=== PATIENT | male | born 1960 | race Caucasian/White ===

== ENCOUNTER 2016-10-18 09:13 | Emergency (ER) | payer MEDICAID ==
[~2016-10-18] VITALS: Ht 182.9 cm; Wt 86.2 kg
[~2016-10-18 09:13] MED LIST: ACHD5005 PO; ALBU8.5H2 IH; ALBU8.5H2 INH; ALBU8.5H2 PO; AMIT25TA9 PO; AMOX-358 PO; AMOX500C2 PO; APIX2.5T PO; APIX5TAB2 PO; ASP325T PO; ASP325TEC PO; ASPI325T32 PO; ATOR80TA2 PO; ATOR80TA75 PO; BUTA1TAB46 PO; CARV12.53 PO; CARV3.122 PO; CARV3.12T PO; CEPH500C PO; CLAR-19 PO; CLOP75TA69 PO; CLPD75T PO; CPR500T PO; CYCL-97 PO; CYCL10TA9 PO; DCS100C PO; DIAZ10TA; DIAZ10TA3 PO; DIAZ5TAB3 PO; DICL75TA2 PO; DILT240C PO; DILT360C20 PO; DILT360C30; DILT360C30 PO; DIPH1TAB25 PO; DIPH1TAB45 PO; DOXA1TAB PO; DOXA1TAB2 PO; DOXA2TAB2 PO; DOXY100C2 PO; DXZS2T PO; Diazepam PO; ESZO3TAB3 PO; FENO135C PO; FURO80TA3 PO; GABA600T2 PO; Gabapentin PO; HYDR-1435 PO; HYDR-2858 PO; HYDR-2890 PO; HYDR-3720 PO; HYDR118S10 PO; HYDR1TAB PO; HYDR1TAB86 PO; HYOS0.1232; HYOS0.1234 PO; HYOS0.127 PO; HYOS0.127 SL; IBP600T1 PO; INSASP10V SC; INSU100I13 SQ; INSU100I14 SC; INSU100I14 SQ; INSU100I16 SQ; INSU100I17 SQ; INSU100I29 SC; INSU100I5 SC; INSU100V5 SQ; Insulin Human Lispro SC; KCL PO; LAMOTIL PO; LEVE1U SQ; LEVO500T2 PO; LISI20TA; LISI20TA PO; LOSA100T16 PO; LOSA100T28 PO; LOSA100T7 PO; METF500T; METF500T8; METO-351 PO; METO-451 PO; METO10TA3 PO; METO50TA7; METO50TA7 PO; METR500T17 PO; MORP15TA8 PO; MPR22TI TP; MTF500T; MTF500T PO; MTP50T PO; MUPI22OI2 TP; Metoprolol Tartrate PO; Morphine Sulfate PO; NAPR-243 PO; NICO1PAT TD; NITR0.3T6 SL; NITR0.4T PO; NITR0.4T SL; NTR.4SL SL; ONDA-42 SL; ONDA8TAB9 PO; ONDAN4ODT PO; OXYC-12 PO; OXYC-272 PO; OXYC10TA63 PO; OXYC1TAB17 PO; OXYC20TA4 PO; OXYCODONE 10MG PO; OXYCODONE HCL 10MG PO; PANT40SU; PANT40TA PO; PANT40TA3 PO; PNT40TEC PO; POTA10TA36 PO; POTA20TA15 PO; PRAV40TA PO; PRM25SURX PR; PRM25T PO; PRM50SU PR; PROP1TAB77; PROP1TAB77 PO; PRV20T PO; RIVA20TA2 PO; RT-ALBUINH IH; SULF-222 PO; SULF1TAB34 PO; SULF1TAB35 PO; SULF1TAB38 PO; SULF1TAB7 PO; TMZP15C PO; TORADOL; TORADOL 10 MG PO; TRAM-21 PO; TRAM50TA2 PO; TRM50T PO; TRZ100T; TRZ100T PO; VENL150C; VENL50TA; VENL75CA55 PO; VNL75CCR PO; VNL75T PO; WRF10T; WRF10T PO; WRF5T; [UNRECOGNIZED DRUG - CODE] PO; [UNRECOGNIZED DRUG - CODE] PO; [UNRECOGNIZED DRUG - CODE] TOP
--- OUTSIDE RECORDS SUMMARY | 2016-10-18 09:20 | XMS REPORT ---
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 Problem Diabetes mellitus without mention of complication, type II or unspecified type, not stated as uncontrolled 250.00 Active Problem Abdominal pain, unspecified site 789.00 Active Problem Abdominal pain, generalized 789.07 Active Problem Unspecified local infection of skin and subcutaneous tissue 686.9 Active Problem PVD (peripheral vascular disease) I73.9 Active Problem Diabetes with neurological manifestations, type II or unspecified type , uncontrolled 250.62 Active Problem Diarrhea 787.91 Active Problem Unspecified disorder of male genital organs 608.9 Active Problem Type 2 diabetes mellitus without complications E11.9 Active Problem Dysphagia, unspecified 787.20 Active Problem Abdominal pain, right lower quadrant 789.03 Active Problem Unspecified orchitis and epididymitis 604.90 Active Problem Urinary tract infection, site not specified 599.0 Active Problem Inguinal hernia without mention of obstruction or gangrene, unilateral or unspecified, (not specified as recurrent) 550.90 Active Problem Diverticulitis of colon (without mention of hemorrhage) 562.11 Active Problem Unspecified sleep apnea 780.57 Active Problem Contusion of hip 924.01 Active Problem Traumatic amputation of leg(s) (complete) (partial), unilateral, below knee, without mention of complication 897.0 Active Problem Personal history of noncompliance with medical treatment, presenting hazards to health V15.81 Active Problem Diabetes with other specified manifestations, type II or unspecified type, not stated as uncontrolled 250.80 Active Problem Dysuria 788.1 Active Problem Chronic kidney disease, unspecified 585.9 Active Medications Medication Code System Code Instructions Start Date End Date Status Dosage Nitrostat [facility] [id number] 0.4 MG TAKE 1 TABLET UNDER TONGUE NEEDED, MAY REPEAT EVERY 5 MINUTES - REPORT AFTER 3 Results No Known Results Summary Purpose eClinicalWorks Submission
[2016-10-18 09:30] VITALS: BP 159/112
--- NOTE | 2016-10-18 09:50 | Diagnostic Imaging Report ---
Portable upright radiograph of the chest. INDICATION: Chest pain. COMPARISON: 01/03/16. FINDINGS: The heart is enlarged with mild pulmonary vascular congestion. No overt edema or airspace consolidation. No effusion or pneumothorax. The mediastinum and keyanna appear unremarkable. There is an infusion port with tip at SVC level. Sternotomy wires are seen. IMPRESSION: Cardiomegaly with mild pulmonary vascular congestion. Dictated by: Dictated on workstation # [id number]
--- NOTE | 2016-10-18 10:11 | ED Chest Pain ---
General Chief Complaint: Chest Pain Stated Complaint: CHEST PAIN Nursing Triage Note: Pt to ED via [facility] c/o CP starting around 0600 this morning. Pt reports pain 10/10 at onset and states pain is now a 2/10. Pt received 324 mg ASA and #2 0.4mg SL nitro en route per EMS. Pt reports he has been having chest pain frequently for past 1.5 weeks and has been self treating with nitro. Pt reports he has been taking approx 4 nitro per day to help w/ chest pain. Pt reports he is now out of his home nitro. Nursing Sepsis Screen: No Definite Risk Source: patient, EMS, old records Exam Limitations: no limitations History of Present Illness Time seen by provider: 09:15 Initial Comments This 56-year-old gentleman with significant coronary artery disease presents with intermittent pain in the right lower chest near the sternum intermittently for 1-2 weeks. He can identify no exacerbating or alleviating factors. It is characterized as a squeezing pain. They reportedly improves after multiple doses of nitroglycerin but he has run out of his nitroglycerin. He denies any cough, shortness of air, or fever. He also complains of some epigastric pain that is chronic in nature and unchanged. Chest pain resolved by the time of my interview. Allergies and Home Medications Allergies Coded Allergies: codeine (Unverified Allergy, Severe, EDEMA, RESPIRATORY, 10/28/14) PATIENT TAKES HYDROCODONE AT HOME propoxyphene (Verified Allergy, Severe, THROAT SWELLED SHUT, 10/28/14) bee pollen (Unverified Allergy, Mild, 07/03/13) tramadol (Verified Allergy, Unknown, SEVERE MIGRAINE, 03/25/14) ibuprofen (Verified Adverse Reaction, Unknown, NAUSEA, 10/28/14) Home Medications Albuterol Sulfate 8.5 Gm Hfa.aer.ad 2 PUFF IH QID (Reported) Aspirin 325 Mg Tablet.dr 325 MG PO DAILY (Reported) Cephalexin 500 Mg Capsule #28 500 MG PO QID Prescribed by: MYRA RUBI on 07/16/16 1119 Clopidogrel Bisulfate 75 Mg Tablet #30 75 MG PO DAILY Prescribed by: BRITT BHATIA on 04/24/16 1701 Diphenoxylate HCl/Atropine 1 Each Tablet 1 TAB PO Q4H PRN PRN DIARRHEA (Reported ) Insulin Aspart 300 Units/3 Ml Solution SQ SLIDING/SCALE (Reported) Losartan Potassium 100 Mg Tablet 100 MG PO DAILY (Reported) Metoprolol Succinate 25 Mg Tab.er.24h #30 25 MG PO DAILY Prescribed by: BRITT HBATIA on 04/24/16 170 Mupirocin 22 Gm Oint...g. TP TID PRN PRN SKIN LESIONS (Reported) Nitroglycerin 0.4 Mg Tab.subl 0.4 MG PO UD PRN PRN CHEST PAIN (Reported) PLACE 1 TABLET UNDER TONGUE EVERY 5 MINUTES FOR 3 DOSES Pantoprazole Sodium 40 Mg Tablet.dr 40 MG PO DAILY (Reported) Pravastatin Sodium 40 Mg Tablet #30 40 MG PO DAILY Prescribed by: BRITT BHATIA on 04/24/16 170 Sulfamethoxazole/Trimethoprim 1 Each Tablet #20 1 EACH PO BID Prescribed by: MYRA RUBI on 07/16/16 1119 Review of Systems Constitutional: no symptoms reported EENTM: No Symptoms Reported Respiratory: No Symptoms Reported Cardiovascular: See HPI Gastrointestinal: See HPI Genitourinary: No Symptoms Reported Musculoskeletal: no symptoms reported Skin: no symptoms reported Psychiatric/Neurological: No Symptoms Reported Endocrine: No Symptoms Reported Past Okkeylr-Ythwxo-Qkfqbn Hx Patient Social History Alcohol Use: Past History Recreational Drug Use: Yes (MARIJUANA) Smoking Status: Current Everyday Smoker Recent Foreign Travel: No Contact w/Someone Who Travel: No Recent Infectious Disease Expo: No Recent Hopitalizations: Yes (Multiple, see Hx) Immunizations Up To Date Tetanus Booster (TDap): Less than 5yrs PED Vaccines UTD: No Date of Pneumonia Vaccine: Apr 24, 2013 Date of Influenza Vaccine: Jun 20, 2014 Seasonal Allergies Seasonal Allergies: No Surgeries HX Surgeries: Yes (HEMORRHOIDECTOMY, RT BKA, LT ABOVE KA, HERNIA REPX6) Surgeries: Abdominal, Cardiac, CABG, Gallbladder, Orthopedic Respiratory Hx Respiratory Disorders: Yes Respiratory Disorders: COPD Cardiovascular Hx Cardiac Disorders: Yes Cardiac Disorders: Coronary Artery Disease, Hypertension Neurological Hx Neurological Disorders: Yes Reproductive System Hx Reproductive Disorders: Yes (ED) Sexually Transmitted Disease: No Genitourinary Hx Genitourinary Disorders: Yes Genitourinary Disorders: Kidney Infection, Bladder Infection, Kidney Stones, Renal Failure Gastrointestinal Hx Gastrointestinal Disorders: Yes Gastrointestinal Disorders: Abdominal Hernia, Hemorrhoids Musculoskeletal Hx Musculoskeletal Disorders: Yes (GANGRENE) Musculoskeletal Disorders: Amputee, Chronic Back Pain Endocrine Hx Endocrine Disorders: Yes Endocrine Disorders: Diabetes, Insulin dep HEENT HX ENT Disorders: Yes (GLASSES FOR READING) Loss of Vision: Denies Hearing Impairment: Denies Cancer Hx Cancer: No Psychosocial Hx Psychiatric Problems: Yes Behavioral Health Disorders: Anxiety, Depression Integumentary HX Skin/Integumentary Disorder: Yes (diabetic ulcer) Skin/Integumentary Disorders: Recent Skin Changes Blood Transfusions Hx Blood Disorders: No Adverse Reaction to a Blood Tr: No (n/a) Family Medical History Significant Family History: Heart Disease Family Medial History: Patient reports no known family medical history. Physical Exam Vital Signs Vital Sign - Last 12Hours 10/18/16 09:30 Temp 97.8 Pulse 82 Resp 18 B/P 159/112 Capillary Refill : Less Than 3 Seconds General Appearance: No Apparent Distress WD/WN HEENT: PERRL/EOMI Normal ENT Inspection Neck: Normal Inspection Respiratory: Lungs Clear Normal Breath Sounds No Accessory Muscle Use No Respiratory Distress Cardiovascular: Regular Rate, Rhythm No Edema No Murmur Gastrointestinal: Normal Bowel Sounds Soft Tenderness (epigastrium) Extremity: Other (bilateral lower extremity amputations) Neurologic/Psychiatric: Alert Oriented x3 No Motor/Sensory Deficits Normal Mood/Affect can tester II-XII Norm as Tested Skin: Normal Color Warm/Dry Progress/Results/Core Measures Results/Orders Lab Results Laboratory Tests Test 10/18/16 10:05 Range/Units Activated Partial Thromboplast Time 22 L 24-35 SEC Alanine Aminotransferase (ALT/SGPT) 24 0-55 U/L Albumin 3.1 L 3.2-4.5 G/DL Alkaline Phosphatase 128 40-136 U/L Anion Gap 11 5-14 MMOL/L Aspartate Amino Transf (AST/SGOT) 28 5-34 U/L B-Type Natriuretic Peptide 795.5 H <100.0 PG/ML BUN/Creatinine Ratio 9 Basophils # (Auto) 0.1 0.0-0.1 10^3/uL Basophils (%) (Auto) 1 0-10 % Blood Urea Nitrogen 19 H 7-18 MG/DL Calcium Level 8.4 L 8.5-10.1 MG/DL Carbon Dioxide Level 21 21-32 MMOL/L Chloride Level 102 98-107 MMOL/L Creatinine 2.13 H 0.60-1.30 MG/DL Eosinophils # (Auto) 0.3 0.0-0.3 10^3/uL Eosinophils (%) (Auto) 4 0-10 % Estimat Glomerular Filtration Rate 32 Glucose Level 333 H 70-105 MG/DL Hematocrit 41 40-54 % Hemoglobin 14.7 13.3-17.7 G/DL INR Comment 1.0 0.8-1.4 Lipase 83 H 8-78 U/L Lymphocytes # (Auto) 1.7 1.0-4.0 X 10^3 Lymphocytes (%) (Auto) 21 12-44 % Magnesium Level 1.9 1.8-2.4 MG/DL Mean Corpuscular Hemoglobin 31 25-34 PG Mean Corpuscular Hemoglobin Concent 36 32-36 G/DL Mean Corpuscular Volume 86 80-99 FL Mean Platelet Volume 11.1 H 7.4-10.4 FL Monocytes # (Auto) 0.9 0.0-1.0 X 10^3 Monocytes (%) (Auto) 10 0-12 % Myoglobin 115.8 H 10.0-92.0 NG/ML Neutrophils # (Auto) 5.4 1.8-7.8 X 10^3 Neutrophils (%) (Auto) 64 42-75 % Platelet Count 245 130-400 10^3/uL Potassium Level 3.5 L 3.6-5.0 MMOL/L Prothrombin Time 13.1 12.2-14.7 SEC Red Blood Count 4.80 4.35-5.85 10^6/uL Red Cell Distribution Width 13.5 10.0-14.5 % Sodium Level 134 L 135-145 MMOL/L Total Bilirubin 0.8 0.1-1.0 MG/DL Total Protein 6.3 L 6.4-8.2 G/DL Troponin I < 0.30 <0.30 NG/ML White Blood Count 8.4 4.3-11.0 10^3/uL My Orders Orders-ADRIENNE PHIPPS MD Cbc With Automated Diff (10/18/16 09:15) Magnesium (10/18/16 09:15) Chest 1 View, Ap/Pa Only (10/18/16 09:15) Ekg Tracing (10/18/16 09:15) Cardiac Profile 1 (10/18/16 09:15) Comprehensive Metabolic Panel (10/18/16 09:15) Myoglobin Serum (10/18/16 09:15) Protime With Inr (10/18/16 09:15) Partial Thromboplastin Time (10/18/16 09:15) O2 (10/18/16 09:15) Monitor-Rhythm Ecg Trace Only (10/18/16 09:15) Saline Lock/Iv-Start (10/18/16 09:15) BNP (10/18/16 09:59) Lipase (10/18/16 10:06) Vital Signs/I&O Vital Sign - Last 12Hours 10/18/16 10/18/16 10/18/16 09:16 09:16 09:30 Temp 97.8 Pulse 82 Resp 18 B/P 159/112 Pulse Ox 95 95 O2 Delivery Nasal Cannula Nasal Cannula Nasal Cannula O2 Flow Rate 2 2 2 Blood Pressure Mean: 128 Progress Note : Progress Note Patient's pain resolved. He elected to sign AMA papers and leave without discussing lab results or plan. I did not have opportunity to visit with him again before departed AMA. ECG Initial ECG Impression Date: Oct 18, 2016 Initial ECG Impression Time: 09:19 Initial ECG Rate: 76 Initial ECG Rhythm: A Fib/Flutter Comment Rate controlled atrial fibrillation with no ST elevation or depression. Left axis deviation by automated read. No significant change from prior. Diagnostic Imaging Diagonstic Imaging: Xray Plain Films/CT/US/NM/MRI: chest Comments Chest x-ray viewed by me. Report reviewed. See report below: NAME: MICHAEL [facility] REC#: [id number] PT STATUS: REG ER : 1960 PHYSICIAN: ADRIENNE PHIPPS MD ADMIT DATE: 10/18/16/ER Draft Date of Exam:10/18/16 CHEST 1 VIEW, AP/PA ONLY Portable upright radiograph of the chest. INDICATION: Chest pain. COMPARISON: 01/03/16. FINDINGS: The heart is enlarged with mild pulmonary vascular congestion. No overt edema or airspace consolidation. No effusion or pneumothorax. The mediastinum and keyanna appear unremarkable. There is an infusion port with tip at SVC level. Sternotomy wires are seen. IMPRESSION: Cardiomegaly with mild pulmonary vascular congestion. Dictated on workstation # [id number] Dict: 10/18/16 0943 Trans: 10/18/16 0950 [id number] Interpreted by: HOLLIE PADILLA MD Electronically signed by: Departure Impression Impression: Primary Impression: Chest pain on exertion Additional Impressions: Coronary artery disease Qualified Code: I25.119 - Atherosclerotic heart disease of [place] coronary artery with unspecified angina pectoris Acute renal failure Qualified Code: N17.9 - Acute kidney failure, unspecified Epigastric pain Elevated lipase Disposition: AGAINST MEDICAL ADVICE Condition: Against Medical Advice Departure-Patient Inst. Referrals: [facility] (PCP/Family) Primary Care Physician ADRIENNE PHIPPS MD Oct 18, 2016 10:10
[2016-10-18 10:13] LABS: BASOPHILS # (AUTO) 0.1 10^3/uL (0.0-0.1); BASOPHILS % (AUTO) 1 % (0-10); EOSINOPHILS # (AUTO) 0.3 10^3/uL (0.0-0.3); EOSINOPHILS % (AUTO) 4 % (0-10); LYMPHOCYTES # (AUTO) 1.7 X 10^3 (1.0-4.0); LYMPHOCYTES % (AUTO) 21 % (12-44); MEAN CORPUSCULAR HEMOGLOBIN 31 PG (25-34); MEAN CORPUSCULAR HGB CONC 36 G/DL (32-36); MEAN CORPUSCULAR VOLUME 86 FL (80-99); MEAN PLATELET VOLUME 11.1 FL (7.4-10.4); MONOCYTES # (AUTO) 0.9 X 10^3 (0.0-1.0); MONOCYTES % (AUTO) 10 % (0-12); NEUTROPHILS # (AUTO) 5.4 X 10^3 (1.8-7.8); NEUTROPHILS % (AUTO) 64 % (42-75); PLATELET COUNT 245 10^3/uL (130-400); RED CELL DISTRIBUTION WIDTH 13.5 % (10.0-14.5); WHITE BLOOD COUNT 8.4 10^3/uL (4.3-11.0)
[2016-10-18 10:24] LABS: PROTHROMBIN TIME PATIENT 13.1 SEC (12.2-14.7)
[2016-10-18 10:36] LABS: ALANINE AMINOTRANSFERASE 24 U/L (0-55); ALBUMIN 3.1 G/DL (3.2-4.5); ANION GAP 11 MMOL/L (5-14); ASPARTATE AMINO TRANSFERASE 28 U/L (5-34); BILIRUBIN,TOTAL 0.8 MG/DL (0.1-1.0); BLOOD UREA NITROGEN 19 MG/DL (7-18); BUN/CREATININE RATIO 9; CALCIUM 8.4 MG/DL (8.5-10.1); CARBON DIOXIDE 21 MMOL/L (21-32); CHLORIDE 102 MMOL/L (98-107); CREATININE SERUM 2.13 MG/DL (0.60-1.30); GFR ESTIMATED 32; GLUCOSE 333 MG/DL (70-105); MAGNESIUM 1.9 MG/DL (1.8-2.4); POTASSIUM 3.5 MMOL/L (3.6-5.0); SODIUM 134 MMOL/L (135-145); TOTAL PROTEIN 6.3 G/DL (6.4-8.2)
[2016-10-18 10:43] LABS: MYOGLOBIN SERUM 115.8 NG/ML (10.0-92.0)
== END 2016-10-18 10:41 | disposition left against medical advice (07) ==
LOC: EDUNIT# 09:13 → ER 09:16
DX: I25.119 Atherosclerotic heart disease of native coronary artery with unspecified angina pectoris (principal); N17.9 Acute kidney failure, unspecified; I48.2 Chronic atrial fibrillation; I51.7 Cardiomegaly; R74.8 Abnormal levels of other serum enzymes; I10 Essential (primary) hypertension; E11.9 Type 2 diabetes mellitus without complications; F17.210 Nicotine dependence, cigarettes, uncomplicated; Z79.4 Long term (current) use of insulin; Z79.899 Other long term (current) drug therapy; Z79.82 Long term (current) use of aspirin
CPT/HCPCS: 36415; 71010; 80053; 83690; 83735; 83874; 83880; 84484; 85025; 85610; 85730; 93005; 93041

== ENCOUNTER 2017-07-16 08:52 | Observation (INO) | payer MEDICAID ==
[~2017-07-16] VITALS: Ht 152.4 cm; Wt 104.3 kg
[~2017-07-16 08:52] MED LIST changes: -NICO1PAT TD; +NICOTINE PATCH1 EAC3 TD
--- OUTSIDE RECORDS SUMMARY | 2017-07-16 09:07 | XMS REPORT ---
Author CHRISTINE Cordova [facility] eClinicalWorks Address Unknown Phone Unavailable Care Team Providers Care Mold Holder Name Role Phone CHRISTINE CHEUNG CP Unavailable [...] Start Date End Date Status Dosage Nitrostat [facility] [id number] 0.4 MG TAKE 1 TABLET UNDER TONGUE NEEDED, MAY REPEAT EVERY 5 MINUTES - REPORT AFTER 3 Results No Known Results Summary Purpose eClinicalWorks Submission
--- OUTSIDE RECORDS SUMMARY | 2017-07-16 09:08 | XMS REPORT ---
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 Z89.512 Active 357475044 Problem Type 2 diabetes mellitus without complications E11.9 Active 378652317 Problem PVD (peripheral vascular disease) I73.9 Active 797898817 ALLERGIES No Information SOCIAL HISTORY Never Assessed PLAN OF CARE VITAL SIGNS MEDICATIONS Medication Instructions Dosage Frequency Start Date End Date Duration Status [place] 5-325 MG Orally every 6 hrs 1 tablet as needed 6h Oct, 28 days Active RESULTS No Results PROCEDURES No Known procedures IMMUNIZATIONS No Known Immunizations MEDICAL (GENERAL) HISTORY Type Description Date Medical History Atrial fibrillation Medical History hypertension Medical History hernia, umbilical x5 Medical History hyperlipidemia Medical History type II diabetes Medical History Arthritis Medical History degenerative disease lumbosacral spine Medical History migraine headaches Medical History chronic pain Medical History depression Medical History anxiety Medical History mood disorder (anger) Medical History MRSA Surgical History right below the knee ampuation 01/09/2011 Surgical History bilat foot surgery for spurs Surgical History Left leg amputation above the knee 01/2015 Hospitalization History Hospitalizations for suregeries Hospitalization History Heart failure, Intractable N/V 10/04/15 Hospitalization History CHF 01/06/16 Hospitalization History [place]- testicular sweeling 05/2017
--- OUTSIDE RECORDS SUMMARY | 2017-07-16 09:08 | XMS REPORT ---
Author Author CHRISTINE CHEUNG 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 013462170 Problem Diabetes mellitus without mention of complication, type II or unspecified type, not stated as uncontrolled 250.00 Active 578527304 Problem Abdominal pain, unspecified site 789.00 Active 89096871 Problem Dysphagia, unspecified 787.20 Active 68784222 Problem Unspecified local infection of skin and subcutaneous tissue 686.9 Active 26102336 Problem Unspecified orchitis and epididymitis 604.90 Active 458983242 Problem Abdominal pain, generalized 789.07 Active 741968684 Problem Type 2 diabetes mellitus without complications E11.9 Active 670476982 Problem PVD (peripheral vascular disease) I73.9 Active 550291030 Problem Contusion of hip 924.01 Active 82579943 Problem Diarrhea 787.91 Active 56213008 Problem Unspecified disorder of male genital organs 608.9 Active 78651420 Problem Inguinal hernia without mention of obstruction or gangrene, unilateral or unspecified, (not specified as recurrent) 550.90 Active 83634202 Problem Abdominal pain, right lower quadrant 789.03 Active 900082554 Problem Diabetes with neurological manifestations, type II or unspecified type , uncontrolled 250.62 Active 635764150 Problem Urinary tract infection, site not specified 599.0 Active 56347501 Problem Unspecified sleep apnea 780.57 Active 88842859 Problem Dysuria 788.1 Active 92392439 Problem Traumatic amputation of leg(s) (complete) (partial), unilateral, below knee, without mention of complication 897.0 Active 59048584 Problem Diverticulitis of colon (without mention of hemorrhage) 562.11 Active 824461283 Problem Diabetes with other specified manifestations, type II or unspecified type, not stated as uncontrolled 250.80 Active 867199673 Problem Pediculus capitis (head louse) 132.0 Active 44758308 Problem Chronic kidney disease, unspecified 585.9 Active 386703247 Problem Personal history of noncompliance with medical treatment, presenting hazards to health V15.81 Active 059622906 ALLERGIES Unknown Allergies SOCIAL HISTORY No smoking Hx information available PLAN OF CARE VITAL SIGNS MEDICATIONS Unknown Medications RESULTS No Results PROCEDURES No Known procedures IMMUNIZATIONS No Known Immunizations
--- OUTSIDE RECORDS SUMMARY | 2017-07-16 09:10 | XMS REPORT ---
Author CHRISTINE Cordova [facility] eClinicalWorks Address Unknown Phone Unavailable Care Team Providers Care Innersole Maker Name Role Phone CHRISTINE CHEUNG CP Unavailable Allergies No Known Allergies Problems Problem Type Condition Code Onset Dates Condition Status Problem Personal history of noncompliance with medical treatment, presenting hazards to health V15.81 Active Problem Cellulitis and abscess of unspecified site 682.9 Active Problem Diabetes with other specified manifestations, type II or unspecified type, not stated as uncontrolled 250.80 Active Problem Rash and other nonspecific skin eruption 782.1 Active Problem Pediculus capitis (head louse) 132.0 Active Problem Abdominal pain, unspecified site 789.00 Active Problem 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 Problem Urinary tract infection, site not specified 599.0 Active Problem Inguinal hernia without mention of obstruction or gangrene, unilateral or unspecified, (not specified as recurrent) 550.90 Active Problem Dysphagia, unspecified 787.20 Active Problem Diabetes mellitus without mention of complication, type II or unspecified type, not stated as uncontrolled 250.00 Active Problem Diabetes with neurological manifestations, type II or unspecified type , uncontrolled 250.62 Active Problem Other specified disorders of liver 573.8 Active Problem Abdominal pain, generalized 789.07 Active Problem Unspecified local infection of skin and subcutaneous tissue 686.9 Active Problem Abdominal pain, right lower quadrant 789.03 Active Problem Unspecified orchitis and epididymitis 604.90 Active Problem Contusion of hip 924.01 Active Problem Traumatic amputation of leg(s) (complete) (partial), unilateral, below knee, without mention of complication 897.0 Active Problem Unspecified disorder of male genital organs 608.9 Active Problem Diarrhea 787.91 Active Problem Dysuria 788.1 Active Problem Chronic kidney disease, unspecified 585.9 Active Problem Diverticulitis of colon (without mention of hemorrhage) 562.11 Active Problem Unspecified sleep apnea 780.57 Active Medications Medication Code System Code Instructions Start Date End Date Status Dosage NovoLog Flexpen [facility] [address]-63 100 UNIT/ML inject 12 units subcutaneously three times daily before meals Results No Known Results Summary Purpose eClinicalWorks Submission
--- NOTE | 2017-07-16 09:13 | ED Chest Pain ---
General Chief Complaint: Chest Pain Stated Complaint: CP Source: patient Exam Limitations: no limitations History of Present Illness Time seen by provider: 08:56 Initial Comments Here by EMS with report of right-sided chest pain that radiates to his right neck. Associated with nausea and vomiting times one. Pain 9 out of 10 earlier. Onset at 4 a.m. and has persisted since. He did take 2 nitroglycerin at home earlier today which did not help. EMS did give aspirin 324 mg by mouth as well as nitroglycerin sublingual 2 for persistent pain. Blood pressure remains stable and pain decreased to 2 out of 10. Also complaining of right kidney pain as well as left upper abdominal pain. Nausea improved after Zofran given by EMS. 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: Yes NTG SL BLENDER CONVEYOR OPERATOR: Yes Associated Symptoms: abdominal pain, No back pain, No fever/chills, nausea/ vomiting, shortness of breath, No weakness Allergies and Home Medications Allergies Coded Allergies: codeine (Unverified Allergy, Severe, EDEMA, RESPIRATORY, 10/28/14) PATIENT TAKES HYDROCODONE AT HOME propoxyphene (Verified Allergy, Severe, THROAT SWELLED SHUT, 10/28/14) bee pollen (Unverified Allergy, Mild, 07/03/13) tramadol (Verified Allergy, Unknown, SEVERE MIGRAINE, 03/25/14) ibuprofen (Verified Adverse Reaction, Unknown, NAUSEA, 10/28/14) Home Medications Albuterol Sulfate 8.5 Gm Hfa.aer.ad, 2 PUFF IH QID, (Reported) Aspirin 325 Mg Tablet.dr, 325 MG PO DAILY, (Reported) Clopidogrel Bisulfate 75 Mg Tablet, 75 MG PO DAILY, #30 Ref 5 Prescribed by: BRITT MCDANIELS on 04/24/161700 Diphenoxylate HCl/Atropine 1 Each Tablet, 1 TAB PO Q4H PRN for DIARRHEA, ( Reported) Insulin Aspart 300 Units/3 Ml Solution, SQ SLIDING/SCALE, (Reported) Losartan Potassium 100 Mg Tablet, 100 MG PO DAILY, (Reported) Metoprolol Succinate 25 Mg Tab.er.24h, 25 MG PO DAILY, #30 Ref 5 Prescribed by: BIRTT MCDANIELS on 04/24/16 Mupirocin 22 Gm Oint...g., TP TID PRN for SKIN LESIONS, (Reported) Nitroglycerin 0.4 Mg Tab.subl, 0.4 MG PO UD PRN for CHEST PAIN, (Reported) PLACE 1 TABLET UNDER TONGUE EVERY 5 MINUTES FOR 3 DOSES Pantoprazole Sodium 40 Mg Tablet.dr, 40 MG PO DAILY, (Reported) Pravastatin Sodium 40 Mg Tablet, 40 MG PO DAILY, #30 Ref 5 Prescribed by: BRITT MCDANIELS on 04/24/161700 Review of Systems Constitutional: see HPI, No chills, No fever EENTM: No Symptoms Reported Respiratory: No Symptoms Reported, Denies SOA at Rest, Denies Wheezing Cardiovascular: Chest Pain, Edema Gastrointestinal: See HPI, Abdominal Pain, Nausea, Vomiting Genitourinary: See HPI, Pain Musculoskeletal: no symptoms reported Skin: no symptoms reported Psychiatric/Neurological: No Symptoms Reported All Other Systems Reviewed Negative Unless Noted: Yes Past Zyfkzsm-Kzfjoa-Burvgi Hx Patient Social History Alcohol Use: Past History Recreational Drug Use: Yes Smoking Status: Current Everyday Smoker Recent Hopitalizations: Yes (Multiple, see Hx) Immunizations Up To Date Tetanus Booster (TDap): Less than 5yrs PED Vaccines UTD: No Date of Pneumonia Vaccine: Apr 24, 2013 Date of Influenza Vaccine: Jun 20, 2014 Seasonal Allergies Seasonal Allergies: No Surgeries History of Surgeries: Yes Surgeries: Abdominal, Cardiac, CABG, Gallbladder, Orthopedic Respiratory History of Respiratory Disorde: Yes Respiratory Disorders: COPD Cardiovascular History of Cardiac Disorders: Yes Cardiac Disorders: Coronary Artery Disease, Hypertension Reproductive System Hx Reproductive Disorders: Yes (ED) Sexually Transmitted Disease: No Genitourinary History of Genitourinary Disor: Yes Genitourinary Disorders: Kidney Infection, Bladder Infection, Kidney Stones, Renal Failure Gastrointestinal History of Gastrointestinal Di: Yes Gastrointestinal Disorders: Abdominal Hernia, Hemorrhoids Musculoskeletal History of Musculoskeletal Dis: Yes Musculoskeletal Disorders: Amputee, Chronic Back Pain Endocrine History of Endocrine Disorders: Yes Endocrine Disorders: Diabetes, Insulin dep HEENT History of HEENT Disorders: Yes Loss of Vision: Denies Hearing Impairment: Denies Psychosocial Behavioral Health Disorders: Anxiety, Depression Integumentary Skin/Integumentary Disorders: Recent Skin Changes Blood Transfusions Adverse Reaction to a Blood Tr: No (n/a) Reviewed Nursing Assessment Reviewed/Agree w Nursing PMH: Yes Family Medical History Significant Family History: Heart Disease Family Medial History: Patient reports no known family medical history. Physical Exam Vital Signs Vital Sign - Last 12Hours Capillary Refill : General Appearance: No Apparent Distress, WD/WN HEENT: PERRL/EOMI, Pharynx Normal Neck: Non Tender, Supple Respiratory: Lungs Clear, Normal Breath Sounds Cardiovascular: Regular Rate, Rhythm, No Murmur Gastrointestinal: Non Tender, Soft Extremity: Normal Range of Motion, Non Tender Neurologic/Psychiatric: Alert, Oriented x3 Skin: Normal Color, Warm/Dry Progress/Results/Core Measures Results/Orders Lab Results Laboratory Tests Test 07/16/17 09:00 07/16/17 09:05 Range/Units White Blood Count 8.2 4.3-11.0 10^3/uL Red Blood Count 4.24 L 4.35-5.85 10^6/uL Hemoglobin 13.0 L 13.3-17.7 G/DL Hematocrit 38 L 40-54 % Mean Corpuscular Volume 89 80-99 FL Mean Corpuscular Hemoglobin 31 25-34 PG Mean Corpuscular Hemoglobin Concent 35 32-36 G/DL Red Cell Distribution Width 14.5 10.0-14.5 % Platelet Count 191 130-400 10^3/uL Mean Platelet Volume 11.1 H 7.4-10.4 FL Neutrophils (%) (Auto) 72 42-75 % Lymphocytes (%) (Auto) 15 12-44 % Monocytes (%) (Auto) 8 0-12 % Eosinophils (%) (Auto) 5 0-10 % Basophils (%) (Auto) 1 0-10 % Neutrophils # (Auto) 5.9 1.8-7.8 X 10^3 Lymphocytes # (Auto) 1.2 1.0-4.0 X 10^3 Monocytes # (Auto) 0.7 0.0-1.0 X 10^3 Eosinophils # (Auto) 0.4 H 0.0-0.3 10^3/uL Basophils # (Auto) 0.0 0.0-0.1 10^3/uL Prothrombin Time 14.2 12.2-14.7 SEC INR Comment 1.1 0.8-1.4 Activated Partial Thromboplast Time 28 24-35 SEC Sodium Level 136 135-145 MMOL/L Potassium Level 4.2 3.6-5.0 MMOL/L Chloride Level 106 98-107 MMOL/L Carbon Dioxide Level 22 21-32 MMOL/L Anion Gap 8 5-14 MMOL/L Blood Urea Nitrogen 30 H 7-18 MG/DL Creatinine 3.04 H 0.60-1.30 MG/DL Estimat Glomerular Filtration Rate 21 BUN/Creatinine Ratio 10 Glucose Level 243 H 70-105 MG/DL Calcium Level 8.5 8.5-10.1 MG/DL Magnesium Level 1.9 1.8-2.4 MG/DL Total Bilirubin 0.7 0.1-1.0 MG/DL Aspartate Amino Transf (AST/SGOT) 15 5-34 U/L Alanine Aminotransferase (ALT/SGPT) 13 0-55 U/L Alkaline Phosphatase 114 40-136 U/L Myoglobin 145.6 H 10.0-92.0 NG/ML Troponin I < 0.30 <0.30 NG/ML Total Protein 6.4 6.4-8.2 GM/DL Albumin 3.0 L 3.2-4.5 GM/DL Amylase Level 51 25-125 U/L Lipase 37 8-78 U/L Urine Color YELLOW Urine Clarity CLEAR Urine pH 7 5-9 Urine Specific [place] 1.010 L 1.016-1.022 Urine Protein 3+ H NEGATIVE Urine Glucose (UA) 1+ H NEGATIVE Urine Ketones NEGATIVE NEGATIVE Urine Nitrite NEGATIVE NEGATIVE Urine Bilirubin NEGATIVE NEGATIVE Urine Urobilinogen NORMAL NORMAL MG/DL Urine Leukocyte Esterase NEGATIVE NEGATIVE Urine RBC (Auto) 2+ H NEGATIVE Urine RBC 2-5 H /HPF Urine WBC NONE /HPF Urine Crystals NONE /LPF Urine Bacteria NEGATIVE /HPF Urine Casts NONE /LPF Urine Mucus NEGATIVE /LPF Urine Culture Indicated NO My Orders Orders - ANANDA GONCALVES MD Ekg Tracing (07/16/17 08:53) Cbc With Automated Diff (07/16/17 09:01) Magnesium (07/16/17 09:01) Chest 1 View, Ap/Pa Only (07/16/17 09:01) Cardiac Profile 1 (07/16/17 09:01) Comprehensive Metabolic Panel (07/16/17 09:01) Myoglobin Serum (07/16/17 09:01) Protime With Inr (07/16/17 09:01) Partial Thromboplastin Time (07/16/17 09:01) O2 (07/16/17 09:01) Monitor-Rhythm Ecg Trace Only (07/16/17 09:01) Lipid Panel (07/17/17 06:00) Lipase (07/16/17 09:01) Amylase (07/16/17 09:01) Ua Culture If Indicated (07/16/17 09:02) Morphine Injection (Morphine Injection (07/16/17 10:46) Morphine Injection (Morphine Injection (07/16/17 10:41) Apixaban Tablet (Eliquis Tablet) (07/16/17 11:15) Vital Signs/I&O Vital Sign - Last 12Hours 07/16/17 07/16/17 07/16/17 08:54 08:54 08:54 Temp 97.9 Pulse 65 Resp 18 B/P (MAP) 163/101 Pulse Ox 96 98 O2 Delivery Nasal Cannula Nasal Cannula Nasal Cannula O2 Flow Rate 2.00 2.0 Progress Note : Progress Note Seen and evaluated. IV by EMS. Labs, EKG and chest x-ray ordered. UA ordered. Monitor patient. Findings as noted above. Patient has improved pain but still a little bit. Morphine 4 mg IV. 1153: I did discuss the case with Dr. Turner. She accepts patient for admission, observation status. Consult Dr. Mcdaniels. This was done at 1100. He accepts patient in consult. Eliquis 2.5 mg by mouth ordered per his recommendation. Discussed with patient and family who agree and are appreciative. Old records will be ordered from [facility] visit 2 weeks ago. Admit observation status. ECG Initial ECG Impression Date: Jul 16, 2017 Initial ECG Impression Time: 08:53 Initial ECG Rate: 71 Initial ECG Rhythm: A Fib/Flutter Comment Atrial fibrillation with leftward axis. No evidence of ST elevation [place]. Unchanged from previous of 18 October 2016. Interpreted by me. Diagnostic Imaging Diagonstic Imaging: Xray Plain Films/CT/US/NM/MRI: chest Comments VIA [facility] [place], [place] NAME: MICHAEL TO [facility] REC#: [id number] PT STATUS: REG ER : 1960 PHYSICIAN: ANANDA GONCALVES MD ADMIT DATE: 07/16/17/ER Draft Date of Exam:07/16/17 CHEST 1 VIEW, AP/PA ONLY EXAMINATION: Portable upright radiograph of the chest. INDICATION: Chest pain. FINDINGS: The lungs demonstrate interstitial thickening suggestive of vascular congestion with medial right basilar infiltrates or atelectasis. There is suggestion of small effusions. No pneumothorax. The mediastinum and keyanna appear unremarkable. Sternotomy wires are seen. There is a left subclavian Jzpj-[id number]-mngbsken with the tip at the SVC level. IMPRESSION: Cardiomegaly with mild vascular congestion. Mild right basilar infiltrates or atelectasis. Dictated on workstation # [id number] Dict: 07/16/17 09 Trans: 07/16/17 0925 [facility] [phone] Interpreted by: HOLLIE PADILLA MD Electronically signed by: Departure Communication (Admissions) Time/Spoke to Admitting Phy: 10:53 Impression Impression: Primary Impression: Chest pain Qualified Codes: R07.9 - Chest pain, unspecified Additional Impression: Chronic kidney disease Qualified Codes: N18.9 - Chronic kidney disease, unspecified Disposition: Condition: Stable Admissions Decision to Admit Reason: Admit from ER (General) Decision to Admit/Date: Jul 16, 2017 Time/Decision to Admit Time: 10:53 Departure-Patient Inst. Referrals: [facility] (PCP/Family) Primary Care Physician ANANDA GONCALVES MD Jul 16, 2017 09:13
[2017-07-16 09:14] LABS: BILIRUBIN,URINE NEGATIVE (NEGATIVE); KETONES,URINE NEGATIVE (NEGATIVE); LEUKOCYTE ESTERASE ,URINE NEGATIVE (NEGATIVE); NITRITE,URINE NEGATIVE (NEGATIVE); PH,URINE 7 (5-9); PROTEIN,URINE 3+ (NEGATIVE); UROBILINOGEN,URINE NORMAL (NORMAL)
[2017-07-16 09:14] LABS: BASOPHILS % (AUTO) 1 % (0-10); EOSINOPHILS # (AUTO) 0.4 10^3/uL (0.0-0.3); EOSINOPHILS % (AUTO) 5 % (0-10); LYMPHOCYTES # (AUTO) 1.2 X 10^3 (1.0-4.0); LYMPHOCYTES % (AUTO) 15 % (12-44); MEAN CORPUSCULAR HEMOGLOBIN 31 PG (25-34); MEAN CORPUSCULAR HGB CONC 35 G/DL (32-36); MEAN CORPUSCULAR VOLUME 89 FL (80-99); MEAN PLATELET VOLUME 11.1 FL (7.4-10.4); MONOCYTES # (AUTO) 0.7 X 10^3 (0.0-1.0); MONOCYTES % (AUTO) 8 % (0-12); NEUTROPHILS # (AUTO) 5.9 X 10^3 (1.8-7.8); NEUTROPHILS % (AUTO) 72 % (42-75); PLATELET COUNT 191 10^3/uL (130-400); RED BLOOD COUNT 4.24 10^6/uL (4.35-5.85); RED CELL DISTRIBUTION WIDTH 14.5 % (10.0-14.5); WHITE BLOOD COUNT 8.2 10^3/uL (4.3-11.0)
--- OUTSIDE RECORDS SUMMARY | 2017-07-16 09:14 | XMS REPORT ---
Author CHRISTINE Cordova Organization [employer] Address Unknown Phone Unavailable Care Team Providers Care Cherry Cutter Name Role Phone CHRISTINE CHEUNG CP Unavailable [...] Problem Unspecified sleep apnea 780.57 Active Medications No Known Medications Results No Known Results Summary Purpose [employer]Clinical[employer] Submission
--- OUTSIDE RECORDS SUMMARY | 2017-07-16 09:17 | XMS REPORT ---
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
--- OUTSIDE RECORDS SUMMARY | 2017-07-16 09:18 | XMS REPORT ---
Author CHRISTINE Cordova [facility] [employer] Address Unknown Phone Unavailable Care Team Providers Care Continuous Improvement Engineer Name Role Phone CHRISTINE CHEUNG CP Unavailable [...] Start Date End Date Status Dosage Nitrostat [facility] [id number] 0.4 MG TAKE 1 TABLET UNDER TONGUE NEEDED, MAY REPEAT EVERY 5 MINUTES - REPORT AFTER 3 Mupirocin [facility] [id number] 2 % APPLY TO AFFECTED AREA THREE TIMES DAILY Results No Known Results Summary Purpose [employer]Works Submission
--- OUTSIDE RECORDS SUMMARY | 2017-07-16 09:18 | XMS REPORT ---
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 241320583 Problem Diabetes mellitus without mention of complication, type II or unspecified type, not stated as uncontrolled 250.00 Active 225048977 Problem Abdominal pain, unspecified site 789.00 Active 68165905 Problem Dysphagia, unspecified 787.20 Active 38793185 Problem Unspecified local infection of skin and subcutaneous tissue 686.9 Active 52146529 Problem Unspecified orchitis and epididymitis 604.90 Active 618828586 Problem Abdominal pain, generalized 789.07 Active 065713810 Problem Type 2 diabetes mellitus without complications E11.9 Active 402477955 Problem PVD (peripheral vascular disease) I73.9 Active 264720065 Problem Contusion of hip 924.01 Active 66202639 Problem Diarrhea 787.91 Active 23685558 Problem Unspecified disorder of male genital organs 608.9 Active 24542042 Problem Inguinal hernia without mention of obstruction or gangrene, unilateral or unspecified, (not specified as recurrent) 550.90 Active 93438136 Problem Abdominal pain, right lower quadrant 789.03 Active 637547841 Problem Diabetes with neurological manifestations, type II or unspecified type , uncontrolled 250.62 Active 868783238 Problem Urinary tract infection, site not specified 599.0 Active 19173971 Problem Unspecified sleep apnea 780.57 Active 26559669 Problem Dysuria 788.1 Active 51163068 Problem Traumatic amputation of leg(s) (complete) (partial), unilateral, below knee, without mention of complication 897.0 Active 30635978 Problem Diverticulitis of colon (without mention of hemorrhage) 562.11 Active 371103125 Problem Diabetes with other specified manifestations, type II or unspecified type, not stated as uncontrolled 250.80 Active 894556993 Problem Pediculus capitis (head louse) 132.0 Active 88848268 Problem Chronic kidney disease, unspecified 585.9 Active 341628761 Problem Personal history of noncompliance with medical treatment, presenting hazards to health V15.81 Active 029215368 ALLERGIES Unknown Allergies SOCIAL HISTORY No smoking Hx information available PLAN OF CARE VITAL SIGNS MEDICATIONS Medication Instructions Dosage Frequency Start Date End Date Duration Status Lomotil 2.5-0.025 MG Orally Four times a day 1 tablet NEEDED 6h Jul, Active RESULTS No Results PROCEDURES No Known procedures IMMUNIZATIONS No Known Immunizations
--- OUTSIDE RECORDS SUMMARY | 2017-07-16 09:20 | XMS REPORT ---
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 Z89.512 Active 686348295 Problem Type 2 diabetes mellitus without complications E11.9 Active 525865085 Problem PVD (peripheral vascular disease) I73.9 Active 808135293 ALLERGIES Substance Reaction Event Type Date Status Tramadol HCl nausea Drug Allergy December, Active Ibuprofen nausea Drug Allergy December, Active Darvocet-n 100 Unknown Drug Allergy December, Active Codeine Sulfate anaphylaxis Drug Allergy December, Active Morphine stomach upset Drug Allergy December, Active SOCIAL HISTORY Never Assessed PLAN OF CARE VITAL SIGNS Height 77 in 2017-01-18 Temperature 98.0 degrees Fahrenheit 2017-01-18 Heart Rate 70 bpm 2017-01-18 Respiratory Rate 20 2017-01-18 Blood pressure systolic 148 mmHg 2017-01-18 Blood pressure diastolic 98 mmHg 2017-01-18 MEDICATIONS Medication Instructions Dosage Frequency Start Date End Date Duration Status Wheelchair 1 as directed May, Active Losartan Potassium 100 MG TAKE ONE TABLET BY MOUTH DAILY 30 Active True Metrix Blood Glucose Test - as directed Mar, Active True Metrix Meter w/Device as directed Mar, Active Nitrostat 0.4 MG TAKE 1 TABLET UNDER TONGUE NEEDED, MAY REPEAT EVERY 5 MINUTES - REPORT AFTER 3 Active Furosemide 80 MG Orally Once a day 1 tablet 24h Active NovoLog Flexpen 100 UNIT/ML INJECT 12 UNITS SUBCUTANEOUSLY THREE TIMES DAILY BEFORE MEALS 31 Active Bactrim DS 800-160 MG Orally Twice a day 1 tablet 12h December,December 10 day(s) Active Diphenoxylate-Atropine 2.5-0.025 MG Orally Four times a day TAKE 1 TABLET BY MOUTH NEEDED FOR FOUR TIMES DAILY 6h 8 Active ProAir HFA 108 (90 Base) MCG/ACT INHALE 2 PUFFS FOUR TIMES DAILY (NEED TO MAKE APPOINTMENT ) 25 Active Hyoscyamine Sulfate 0.125 MG TAKE 1 TABLET BY MOUTH BEFORE MEALS EVERY FOUR HOURS NEEDED 5 Active UltiCare Short Pen [place] 31G X 8 MM USE DIRECTED WITH INSULIN THREE TIMES DAILY 30 Active Pantoprazole Sodium 40 mg Orally Once a day 1 tablet 24h 30 days Active Doxazosin Mesylate 1 MG Orally Once a day 1 tablet 24h Active Peyton 5-325 MG Orally every 6 hrs 1 tablet as needed 6h December, Jan, 28 days Active Sklice 0.5 % Externally rinse well. apply to dry hair let set 10 minutes Sep, 30 days Active Advocate Insulin Pen [place] 31G X 8 MM as directed 8h Dec, Active Bactroban 2 % Externally Three times a day 1 application to affected area 8h Sep, Active Lomotil 2.5-0.025 MG Orally Four times a day 1 tablet NEEDED 6h Jul, Active Aspirin 325 MG Orally Once a day 1 tablet 24h Active Crutches-Aluminum - as directed December, 30 days Active RESULTS No Results PROCEDURES Procedure Date Ordered Result Body Site TORADOL (IM) 60 MG/2ML (UP TO 15 MG) January 18, 2017 THER/PROPH/DIAG INJ, SC/IM January 18, 2017 IMMUNIZATIONS Vaccine Route Administration Date Status TORADOL (IM) 60 MG/2ML (UP TO 15 MG) IM Intramuscular January 18, 2017 Administered MEDICAL (GENERAL) HISTORY Type Description Date Medical [...]
--- OUTSIDE RECORDS SUMMARY | 2017-07-16 09:20 | XMS REPORT ---
Author Author CHRISTINE CHEUNG Organization 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
--- OUTSIDE RECORDS SUMMARY | 2017-07-16 09:20 | XMS REPORT ---
Author Author DEJAN CASTELLANO Organization [employer] Address Unknown Phone Unavailable Care Team Providers Care Wire Web Worker Name Role Phone DEJAN CASTELLANO CP Unavailable Allergies No Known Allergies Problems [...]
[2017-07-16 09:23] LABS: INR 1.1 (0.8-1.4); PROTHROMBIN TIME PATIENT 14.2 SEC (12.2-14.7)
--- NOTE | 2017-07-16 09:25 | Diagnostic Imaging Report ---
EXAMINATION: Portable upright radiograph of the chest. INDICATION: Chest pain. FINDINGS: The lungs demonstrate interstitial thickening suggestive of vascular congestion with medial right basilar infiltrates or atelectasis. There is suggestion of small effusions. No pneumothorax. The mediastinum and keyanna appear unremarkable. Sternotomy wires are seen. There is a left subclavian Siqg-N-zezynote with the tip at the SVC level. IMPRESSION: Cardiomegaly with mild vascular congestion. Mild right basilar infiltrates or atelectasis. Dictated by: Dictated on workstation # [id number]
--- OUTSIDE RECORDS SUMMARY | 2017-07-16 09:28 | XMS REPORT ---
Author CHRISTINE Cordova [facility] [employer] Address Unknown Phone Unavailable Care Team Providers Care Edging Machine Catcher Name Role Phone CHRISTINE CHEUNG CP Unavailable Allergies No Known Allergies Problems Problem Type Condition ICD-9 Code Onset Dates Condition Status Assessment Traumatic amputation of leg(s) (complete) (partial), unilateral, [...] Instructions Start Date End Date Status Dosage Tramadol HCl NDC [address]-38 50 MG Orally every 6 hrs PRN. MUST LAST 30 DAYS March 14, 2015 1 tablet as needed oxycodone NDC 0 10 mg November 15, 2014 take 1 tablet by Oral route every 6 hours PRN Results No Known Results Summary Purpose [employer]ClinicalWorks Submission
--- OUTSIDE RECORDS SUMMARY | 2017-07-16 09:28 | XMS REPORT ---
Author CHRISTINE Cordova [facility] e[employer] Address Unknown Phone Unavailable Care Team Providers Care Morning Show Host Name Role Phone CHRISTINE CHEUNG CP Unavailable [...] Instructions Start Date End Date Status Dosage Scooter NDC 0 1 DX: bilateral amputee March 21, 2016 as directed Results No Known Results Summary Purpose eClinicalWorks Submission
--- OUTSIDE RECORDS SUMMARY | 2017-07-16 09:30 | XMS REPORT ---
Author CHRISTINE Cordova Organization [employer] Address Unknown Phone Unavailable Care Team Providers Care Facility Worker Name Role Phone CHRISTINE CHEUNG CP Unavailable [...]
--- OUTSIDE RECORDS SUMMARY | 2017-07-16 09:30 | XMS REPORT ---
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 apply to dry hair let set 10 minutes Sep, 30 days Active RESULTS No Results PROCEDURES No Known procedures IMMUNIZATIONS No Known Immunizations
--- OUTSIDE RECORDS SUMMARY | 2017-07-16 09:31 | XMS REPORT ---
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 V49.76 Active 791369671 Problem Type 2 diabetes mellitus without complications E11.9 Active 162974581 Problem PVD (peripheral vascular disease) I73.9 Active 280877172 ALLERGIES Substance Reaction Event Type Date Status Tramadol HCl nausea Drug Allergy Oct, Active Ibuprofen nausea Drug Allergy Oct, Active Darvocet-n 100 Unknown Drug Allergy Oct, Active Codeine Sulfate anaphylaxis Drug Allergy Oct, Active Morphine stomach upset Drug Allergy Oct, Active SOCIAL HISTORY Never Assessed PLAN OF CARE VITAL SIGNS Height 77 in 2016-11-16 Weight 212 lbs 2016-11-16 Temperature 98.2 degrees Fahrenheit 2016-11-16 Heart Rate 84 bpm 2016-11-16 Respiratory Rate 22 2016-11-16 BMI 25.14 kg/m2 2016-11-16 Blood pressure systolic 138 mmHg 2016-11-16 Blood pressure diastolic 82 mmHg 2016-11-16 MEDICATIONS Medication Instructions Dosage Frequency Start Date End Date Duration Status Furosemide 80 MG Orally Once a day 1 tablet 24h Active Wheelchair 1 as directed May, Active ProAir HFA 108 (90 Base) MCG/ACT INHALE 2 PUFFS FOUR TIMES DAILY (NEED TO MAKE APPT) 25 Active Advocate Insulin Pen [place] 31G X 8 MM as directed 8h Dec, Active Nitrostat 0.4 MG TAKE 1 TABLET UNDER TONGUE NEEDED, MAY REPEAT EVERY 5 MINUTES - REPORT AFTER 3 Active Pantoprazole Sodium 40 MG Orally Once a day 1 tablet 24h Active Nitroglycerin 0.4 MG TAKE 1 TABLET UNDER TONGUE NEEDED, MAY REPEAT EVERY 5 MINUTES FOR 3 DOSES - REPORT TO DR/ER AFTER 3 DOSES 31 Active Lomotil 2.5-0.025 MG Orally Four times a day 1 tablet NEEDED 6h Jul, Active [place] 5-325 MG Orally every 6 hrs 1 tablet as needed 6h 17 Oct, 2016 Active Mupirocin 2 % APPLY TO AFFECTED AREA THREE TIMES DAILY 7 Active UltiCare Short Pen [place] 31G X 8 MM USE DIRECTED WITH INSULIN THREE TIMES DAILY 30 Active True Metrix Meter w/Device as directed Mar, Active NovoLog Flexpen 100 UNIT/ML INJECT 12 UNITS SUBCUTANEOUSLY THREE TIMES DAILY BEFORE MEALS 31 Active Hyoscyamine Sulfate 0.125 MG TAKE 1 TABLET BY MOUTH BEFORE MEALS EVERY FOUR HOURS NEEDED 5 Active Losartan Potassium 100 MG TAKE ONE TABLET BY MOUTH DAILY 30 Active Bactroban 2 % Externally Three times a day 1 application to affected area 8h Sep, Active True Metrix Blood Glucose Test - as directed Mar, Active Aspirin 325 MG Orally Once a day 1 tablet 24h Active Sklice 0.5 % Externally rinse well. apply to dry hair let set 10 minutes Sep, 30 days Active Diphenoxylate-Atropine 2.5-0.025 MG TAKE 1 TABLET BY MOUTH NEEDED FOR FOUR TIMES DAILY 8 Active Doxazosin Mesylate 1 MG Orally Once a day 1 tablet 24h Active Bactrim DS 800-160 MG Orally Twice a day 1 tablet 12h Oct, 10 day(s) Active RESULTS Name Result Date Reference Range A1C (IN HOUSE) 2016-11-16 A1C IN HOUSE 9.0 4.3 - 5.6 % Previous A1c 6.9 Lot [id number] Exp date 09/2018 PROCEDURES Procedure Date Ordered Result Body Site GLYCATED HEMOGLOBIN TEST November 16, 2016 IMMUNIZATIONS No Known Immunizations MEDICAL (GENERAL) HISTORY [...]
--- OUTSIDE RECORDS SUMMARY | 2017-07-16 09:31 | XMS REPORT ---
Author CHRISTINE Cordova [facility] eClinicalWorks Address Unknown Phone Unavailable Care Team Providers Care Icu Manager Name Role Phone CHRISTINE CHEUNG CP Unavailable [...] Instructions Start Date End Date Status Dosage Anaspaz [facility] [address]-05 0.125 MG Orally every 4 hrs as needed Jul 18, 2016 1 tablet before meals Results No Known Results Summary Purpose eClinicalWorks Submission
[2017-07-16 09:32] LABS: ALANINE AMINOTRANSFERASE 13 U/L (0-55); AMYLASE 51 U/L (25-125); ANION GAP 8 MMOL/L (5-14); ASPARTATE AMINO TRANSFERASE 15 U/L (5-34); BILIRUBIN,TOTAL 0.7 MG/DL (0.1-1.0); BLOOD UREA NITROGEN 30 MG/DL (7-18); BUN/CREATININE RATIO 10; CALCIUM 8.5 MG/DL (8.5-10.1); CARBON DIOXIDE 22 MMOL/L (21-32); CHLORIDE 106 MMOL/L (98-107); CREATININE SERUM 3.04 MG/DL (0.60-1.30); GFR ESTIMATED 21; GLUCOSE 243 MG/DL (70-105); LIPASE 37 U/L (8-78); MAGNESIUM 1.9 MG/DL (1.8-2.4); POTASSIUM 4.2 MMOL/L (3.6-5.0); SODIUM 136 MMOL/L (135-145); TOTAL PROTEIN 6.4 GM/DL (6.4-8.2)
--- OUTSIDE RECORDS SUMMARY | 2017-07-16 09:32 | XMS REPORT ---
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 450793016 Problem Diabetes mellitus without mention of complication, type II or unspecified type, not stated as uncontrolled 250.00 Active 086859049 Problem Abdominal pain, unspecified site 789.00 Active 68265178 Problem Dysphagia, unspecified 787.20 Active 33776422 Problem Unspecified local infection of skin and subcutaneous tissue 686.9 Active 44378850 Problem Unspecified orchitis and epididymitis 604.90 Active 055312500 Problem Abdominal pain, generalized 789.07 Active 745866486 Problem Type 2 diabetes mellitus without complications E11.9 Active 959990239 Problem PVD (peripheral vascular disease) I73.9 Active 408109565 Problem Contusion of hip 924.01 Active 19675241 Problem Diarrhea 787.91 Active 79091009 Problem Unspecified disorder of male genital organs 608.9 Active 97196401 Problem Inguinal hernia without mention of obstruction or gangrene, unilateral or unspecified, (not specified as recurrent) 550.90 Active 66815408 Problem Abdominal pain, right lower quadrant 789.03 Active 632593178 Problem Diabetes with neurological manifestations, type II or unspecified type , uncontrolled 250.62 Active 293086740 Problem Urinary tract infection, site not specified 599.0 Active 10030911 Problem Unspecified sleep apnea 780.57 Active 56074560 Problem Dysuria 788.1 Active 04605270 Problem Traumatic amputation of leg(s) (complete) (partial), unilateral, below knee, without mention of complication 897.0 Active 60391127 Problem Diverticulitis of colon (without mention of hemorrhage) 562.11 Active 612974568 Problem Diabetes with other specified manifestations, type II or unspecified type, not stated as uncontrolled 250.80 Active 881715248 Problem Pediculus capitis (head louse) 132.0 Active 63183810 Problem Chronic kidney disease, unspecified 585.9 Active 540326221 Problem Personal history of noncompliance with medical treatment, presenting hazards to health V15.81 Active 785175411 ALLERGIES Unknown Allergies SOCIAL HISTORY No smoking Hx information available PLAN OF CARE VITAL SIGNS MEDICATIONS Medication Instructions Dosage Frequency Start Date End Date Duration Status Bactroban 2 % Externally Three times a day 1 application to affected area 8h Active RESULTS No Results PROCEDURES No Known procedures IMMUNIZATIONS No Known Immunizations
--- OUTSIDE RECORDS SUMMARY | 2017-07-16 09:32 | XMS REPORT ---
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 Problem Unspecified local infection of skin and subcutaneous tissue 686.9 Active Problem Abdominal pain, unspecified site 789.00 Active Problem Diabetes with neurological manifestations, type II or unspecified type , uncontrolled 250.62 Active Problem Urinary tract infection, site not specified 599.0 Active Problem Unspecified disorder of male genital organs 608.9 Active Problem Dysphagia, unspecified 787.20 Active Problem PVD (peripheral vascular disease) I73.9 Active Problem Diabetes mellitus without mention of complication, type II or unspecified type, not stated as uncontrolled 250.00 Active Problem Unspecified orchitis and epididymitis 604.90 Active Problem Abdominal pain, generalized 789.07 Active Problem Inguinal hernia without mention of obstruction or gangrene, unilateral or unspecified, (not specified as recurrent) 550.90 Active Problem Abdominal pain, right lower quadrant 789.03 Active Problem Traumatic amputation of leg(s) (complete) (partial), unilateral, below knee, without mention of complication 897.0 Active Problem Diverticulitis of colon (without mention of hemorrhage) 562.11 Active Problem Diarrhea 787.91 Active Problem Contusion of hip 924.01 Active Problem Chronic kidney disease, unspecified 585.9 Active Problem Personal history of noncompliance with medical treatment, presenting hazards to health V15.81 Active Problem Unspecified sleep apnea 780.57 Active Problem Dysuria 788.1 Active Medications Medication Code System Code Instructions Start Date End Date Status Dosage True Metrix Meter [facility] [address] w/Device March 28, 2016 as directed True Metrix Blood Glucose Test [facility] 38530[address]27 - March 28, 2016 as directed Results No Known Results Summary Purpose eClinicalWorks Submission
--- OUTSIDE RECORDS SUMMARY | 2017-07-16 09:32 | XMS REPORT ---
Author CHRISTIEN Cordova [facility] eClinicalWorks Address Unknown Phone Unavailable Care Team Providers Care Dragsaw Operator Name Role Phone CHRISTINE CHEUNG CP Unavailable Allergies, Adverse Reactions, Alerts Substance Reaction Event Type Tramadol HCl nausea Drug Allergy Ibuprofen nausea Drug Allergy Darvocet-n 100 Info Not Available Drug Allergy Codeine Sulfate anaphylaxis Drug Allergy Morphine stomach upset Drug Allergy Problems Problem Type Condition Code Onset Dates Condition Status Assessment Type 2 diabetes mellitus without complications E11.9 Active Problem Cellulitis and abscess of unspecified [...] Instructions Start Date End Date Status Dosage Aspirin [facility] [address]-44 325 MG Orally Once a day 1 tablet promethazine [facility] 0 25 mg November 12, 2014 1 tablet by Oral route every 6 hours PRN Furosemide [facility] [address]-90 80 MG Orally Once a day 1 tablet True Metrix Blood Glucose Test [facility] 23612-[address] - March 28, 2016 as directed True Metrix Meter [facility] 97[address] w/Device March 28, 2016 as directed Pantoprazole Sodium [facility] [address]-32 40 MG Orally Once a day 1 tablet Losartan Potassium [facility] 29196369660 100 MG TAKE ONE TABLET BY MOUTH DAILY Lomotil [facility] [address]-98 2.5-0.025 MG Orally Four times a day Jul 08, 2015 1 tablet NEEDED NovoLog Flexpen [facility] 24187605549 100 UNIT/ML INJECT 12 UNITS SUBCUTANEOUSLY THREE TIMES DAILY BEFORE MEALS Advocate Insulin Pen [place] [facility] 5[address]33-[address] 31G X 8 MM 3 times a day December 08, 2015 as directed Nitroglycerin [facility] [address]-59 0.4 MG Sublingual PRN, may repeat every 5 min. report to er after 3. 1 tablet ProAir HFA [facility] 86114956106 108 (90 Base) MCG/ACT INHALE 2 PUFFS BY MOUTH FOUR TIMES DAILY (NEED TO MAKE AN APPT) Doxazosin Mesylate [facility] [address]-34 1 MG Orally Once a day 1 tablet Procedures Procedure Coding System Code Date Office Visit, Est Pt., Level 3 CPT-4 26780 Apr 05, 2016 GLYCATED HEMOGLOBIN TEST CPT-4 44686 Apr 05, 2016 Vital Signs Date/Time: Apr 05, 2016 Blood Pressure Systolic 170 mmHg Cardiac Monitoring Heart Rate 76 bpm Height 77 in Blood Pressure Diastolic 84 mmHg Results No Known Results Summary Purpose eClinicalWorks Submission
--- OUTSIDE RECORDS SUMMARY | 2017-07-16 09:32 | XMS REPORT ---
Author CHRISTINE Cordova [facility] eClinicalWorks Address Unknown Phone Unavailable Care Team Providers Care Information Assurance Manager Name Role Phone CHRISTINE CHEUNG CP Unavailable Allergies No Known Allergies Problems Problem Type Condition Code Onset Dates Condition Status Assessment Traumatic [...] Instructions Start Date End Date Status Dosage oxycodone [place] 0 10 mg November 15, 2014 take 1 tablet by Oral route every 6 hours PRN Diazepam [facility] [address]-29 5 MG Orally Twice a day November 12, 2014 take 1 tablet Lomotil [facility] [address]-27 2.5-0.025 MG Orally Four times a day Jul 08, 2015 1 tablet NEEDED Tramadol HCl [facility] [address]-80 50 MG Orally every 6 hrs PRN. MUST LAST 30 DAYS March 14, 2015 1 tablet as needed Results No Known Results Summary Purpose eClinicalWorks Submission
--- OUTSIDE RECORDS SUMMARY | 2017-07-16 09:32 | XMS REPORT ---
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 798064507 Problem Diabetes mellitus without mention of complication, type II or unspecified type, not stated as uncontrolled 250.00 Active 183252154 Problem Abdominal pain, unspecified site 789.00 Active 09187725 Problem Dysphagia, unspecified 787.20 Active 95515754 Problem Unspecified local infection of skin and subcutaneous tissue 686.9 Active 21670808 Problem Unspecified orchitis and epididymitis 604.90 Active 547896327 Problem Abdominal pain, generalized 789.07 Active 841083701 Problem Type 2 diabetes mellitus without complications E11.9 Active 471630659 Problem PVD (peripheral vascular disease) I73.9 Active 892739678 Problem Contusion of hip 924.01 Active 21243888 Problem Diarrhea 787.91 Active 63238966 Problem Unspecified disorder of male genital organs 608.9 Active 46031765 Problem Inguinal hernia without mention of obstruction or gangrene, unilateral or unspecified, (not specified as recurrent) 550.90 Active 36930777 Problem Abdominal pain, right lower quadrant 789.03 Active 944168629 Problem Diabetes with neurological manifestations, type II or unspecified type , uncontrolled 250.62 Active 584421395 Problem Urinary tract infection, site not specified 599.0 Active 17154071 Problem Unspecified sleep apnea 780.57 Active 25754640 Problem Dysuria 788.1 Active 29556934 Problem Traumatic amputation of leg(s) (complete) (partial), unilateral, below knee, without mention of complication 897.0 Active 81350635 Problem Diverticulitis of colon (without mention of hemorrhage) 562.11 Active 998639344 Problem Diabetes with other specified manifestations, type II or unspecified type, not stated as uncontrolled 250.80 Active 861882409 Problem Pediculus capitis (head louse) 132.0 Active 89252238 Problem Chronic kidney disease, unspecified 585.9 Active 952362465 Problem Personal history of noncompliance with medical treatment, presenting hazards to health V15.81 Active 113941482 ALLERGIES Unknown Allergies SOCIAL HISTORY No smoking Hx information available PLAN OF CARE VITAL SIGNS MEDICATIONS Medication Instructions Dosage Frequency Start Date End Date Duration Status Wheelchair 1 as directed May, Active RESULTS No Results PROCEDURES No Known procedures IMMUNIZATIONS No Known Immunizations
--- OUTSIDE RECORDS SUMMARY | 2017-07-16 09:32 | XMS REPORT ---
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
--- OUTSIDE RECORDS SUMMARY | 2017-07-16 09:32 | XMS REPORT ---
Author CHRISTINE Cordova [facility] eClinicalWorks Address Unknown Phone Unavailable Care Team Providers Care Application Manager Name Role Phone CHRISTINE CHEUNG CP Unavailable Allergies, Adverse Reactions, Alerts Substance Reaction Event Type Ibuprofen nausea Drug Allergy Darvocet-n 100 Info Not Available Drug Allergy Codeine Sulfate anaphylaxis Drug Allergy Morphine stomach upset Drug Allergy Problems Problem Type Condition Code Onset Dates Condition Status Assessment Acquired absence of unspecified leg above knee Z89.619 Active Assessment Traumatic amputation of leg(s) (complete) (partial), unilateral, below knee, without mention of complication 897.0 Active Assessment Abdominal pain, right lower quadrant R10.31 Active Problem Personal history of noncompliance with [...] Instructions Start Date End Date Status Dosage Lomotil [facility] [address]-00 2.5-0.025 MG Orally Four times a day Jul 08, 2015 1 tablet NEEDED Tramadol HCl [facility] [address]-44 50 MG Orally every 6 hrs PRN. MUST LAST 30 DAYS March 14, 2015 1 tablet as needed Bactrim DS [facility] [address]-81 800-160 MG Orally 2 times a day Aug 05, 2015 Aug 15, [address] [facility] 0 25 mg November 12, 2014 1 tablet by Oral route every [address] [facility] 48846670314 108 (90 Base) MCG/ACT INHALE 2 PUFFS BY MOUTH FOUR TIMES DAILY (NEED TO MAKE AN APPT) Proventil HFA [facility] 90310934945 108 (90 Base) MCG/ACT 2 Puff by Inhalation route 4 times per day must keep appt for further refills Oxycodone HCl [facility] [address]-36 10 MG Orally every 6 hrs Aug 05, 2015 1 tablet as needed NovoLog Flexpen [facility] [address]-07 100 UNIT/ML inject 12 units subcutaneously three times daily before meals Diazepam [facility] [address]-34 5 MG Orally Twice a day November 12, 2014 take 1 tablet Procedures Procedure Coding System Code Date No Charge CPT-4 17223 Aug 05, 2015 Office Visit, Est Pt., Level 3 CPT-4 11730 Aug 05, 2015 Vital Signs Date/Time: Aug 05, 2015 Cardiac Monitoring Heart Rate 80 bpm Temperature 98.1 F Height 77 in Blood Pressure Diastolic 90 mmHg Blood Pressure Systolic 190 mmHg Results Name Result Date Reference Range Unit Abnormality Flag [employer] Summary Purpose eClinicalWorks Submission
--- OUTSIDE RECORDS SUMMARY | 2017-07-16 09:32 | XMS REPORT ---
Author DEJAN Alvarez [facility] eClinicalWorks Address Unknown Phone Unavailable Care Team Providers Care Outreach Rep Name Role Phone DEJAN CASTELLANO Unavailable Allergies No Known Allergies Problems Problem [...] Instructions Start Date End Date Status Dosage Pantoprazole Sodium [facility] [address]-67 40 MG Orally Once a day 1 tablet Nitroglycerin [facility] [address]-65 0.4 MG Sublingual not defined NovoLog Flexpen [facility] 86695738502 100 UNIT/ML INJECT 12 UNITS SUBCUTANEOUSLY THREE TIMES DAILY BEFORE MEALS Advocate Insulin Pen [place] [facility] [address]77 31G X 8 MM 3 times a day December 08, 2015 as directed Furosemide [facility] [address]-93 80 MG Orally Once a day 1 tablet Doxazosin Mesylate [facility] [address]-00 1 MG Orally Once a day 1 tablet Bactroban [facility] [address]-65 2 % Externally Three times a day Aug 10, 2015 1 application to affected area ProAir HFA [facility] 24986385131 108 (90 Base) MCG/ACT INHALE 2 PUFFS BY MOUTH FOUR TIMES DAILY (NEED TO MAKE AN APPT) Losartan Potassium [facility] 98115134277 100 MG TAKE ONE TABLET BY MOUTH DAILY Aspirin [facility] [address]-36 325 MG Orally Once a day 1 tablet Results No Known Results Summary Purpose eClinicalWorks Submission
--- OUTSIDE RECORDS SUMMARY | 2017-07-16 09:35 | XMS REPORT ---
Author CHRISTINE Cordova [facility] eClinicalWorks Address Unknown Phone Unavailable Care Team Providers Care Supervisor Garment Manufacturing Name Role Phone CHRISTINE CHEUNG CP Unavailable Allergies, Adverse Reactions, Alerts Substance Reaction Event Type Ibuprofen nausea Drug Allergy Darvocet-n 100 Info Not Available Drug Allergy Codeine Sulfate anaphylaxis Drug Allergy Morphine stomach upset Drug Allergy Problems Problem Type Condition ICD-9 Code Onset Dates Condition Status Assessment Abscess or cellulitis of face 682.0 Active Problem Personal history of noncompliance with [...] Start Date End Date Status Dosage oxycodone NDC 0 10 mg November 15, 2014 take 1 tablet by Oral route every 6 hours PRN NovoLog Flexpen [facility] 16850081386 100 UNIT/ML 3 inject 12 units subcutaneously three times daily before meals Diazepam [facility] [address]-86 5 MG Twice a day November 12, 2014 take 1 tablet (5 mg) by oral route 2 times per day promethazine [facility] 0 25 mg November 12, 2014 1 tablet by Oral route every 6 hours PRN Clindamycin HCl [facility] [address]-45 150 MG Orally 4 times a day May 20, 2015 May 30, 2015 2 capsules Tramadol HCl [facility] [address]-53 50 MG Orally every 6 hrs PRN. MUST LAST 30 DAYS March 14, 2015 1 tablet as needed Proventil HFA [facility] [id number] 108 (90 Base) MCG/ACT 2 Puff by Inhalation route 4 times per day must keep appt for further refills Procedures Procedure Coding System Code Date Office Visit, Est Pt., Level 2 CPT-4 05669 May 20, 2015 Vital Signs Date/Time: May 20, 2015 Temperature 98.6 F Weight 196 lbs Height 77 in BMI 23.24 Index Blood Pressure Diastolic 86 mmHg Blood Pressure Systolic 150 mmHg Cardiac Monitoring Heart Rate 64 bpm Results No Known Results Summary Purpose eClinicalWorks Submission
--- OUTSIDE RECORDS SUMMARY | 2017-07-16 09:35 | XMS REPORT ---
Author CHRISTINE Cordova Organization eClinicalWorks Address Unknown Phone Unavailable Care Team Providers Care Counter Top Maker Name Role Phone CHRISTINE CHEUNG CP [...]
--- OUTSIDE RECORDS SUMMARY | 2017-07-16 09:35 | XMS REPORT ---
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 736024273 Problem Diabetes mellitus without mention of complication, type II or unspecified type, not stated as uncontrolled 250.00 Active 518643708 Problem Abdominal pain, unspecified site 789.00 Active 07525870 Problem Dysphagia, unspecified 787.20 Active 93999309 Problem Unspecified local infection of skin and subcutaneous tissue 686.9 Active 57932302 Problem Unspecified orchitis and epididymitis 604.90 Active 826386874 Problem Abdominal pain, generalized 789.07 Active 436211994 Problem Type 2 diabetes mellitus without complications E11.9 Active 323610148 Problem PVD (peripheral vascular disease) I73.9 Active 687410021 Problem Contusion of hip 924.01 Active 86595010 Problem Diarrhea 787.91 Active 00706112 Problem Unspecified disorder of male genital organs 608.9 Active 11379272 Problem Inguinal hernia without mention of obstruction or gangrene, unilateral or unspecified, (not specified as recurrent) 550.90 Active 38071013 Problem Abdominal pain, right lower quadrant 789.03 Active 580683642 Problem Diabetes with neurological manifestations, type II or unspecified type , uncontrolled 250.62 Active 600007979 Problem Urinary tract infection, site not specified 599.0 Active 30867827 Problem Unspecified sleep apnea 780.57 Active 95281015 Problem Dysuria 788.1 Active 32119031 Problem Traumatic amputation of leg(s) (complete) (partial), unilateral, below knee, without mention of complication 897.0 Active 62141950 Problem Diverticulitis of colon (without mention of hemorrhage) 562.11 Active 472541605 Problem Diabetes with other specified manifestations, type II or unspecified type, not stated as uncontrolled 250.80 Active 280381057 Problem Pediculus capitis (head louse) 132.0 Active 83875559 Problem Chronic kidney disease, unspecified 585.9 Active 344061368 Problem Personal history of noncompliance with medical treatment, presenting hazards to health V15.81 Active 847566861 ALLERGIES Unknown Allergies SOCIAL HISTORY No smoking Hx information available PLAN OF CARE VITAL SIGNS MEDICATIONS Unknown Medications RESULTS No Results PROCEDURES No Known procedures IMMUNIZATIONS No Known Immunizations
--- OUTSIDE RECORDS SUMMARY | 2017-07-16 09:36 | XMS REPORT ---
Author CHRISTINE Cordova Organization [employer] Address Unknown Phone Unavailable Care Team Providers Care Celery Wrapper Name Role Phone CHRISTIEN CHEUNG CP Unavailable Allergies No Known Allergies [...]
[2017-07-16 09:39] LABS: MYOGLOBIN SERUM 145.6 NG/ML (10.0-92.0)
--- OUTSIDE RECORDS SUMMARY | 2017-07-16 09:40 | XMS REPORT ---
Author CHRISTINE Cordova Organization [employer] Address Unknown Phone Unavailable Care Team Providers Care Statistics Tutor Name Role Phone CHRISTINE CHEUNG CP Unavailable [...]
--- OUTSIDE RECORDS SUMMARY | 2017-07-16 09:40 | XMS REPORT ---
Author Author CHRISTINE CHEUNG [facility] Address [address] [place] [address] Care Team Providers Care Learning Coach Name Role Phone CHRISTINE CHEUNG Unavailable PROBLEMS Type Condition ICD9-CM Code NPU63-[id number] Code Onset Dates Condition Status SNOMED Code Problem Chronic migraine without aura, not intractable, without status migrainosus G43.709 Active 84521160 Problem Amputation of left lower extremity above knee upon examination V49.76 Active 055801505 Problem Type 2 diabetes mellitus without complications E11.9 Active 278402584 Problem PVD (peripheral vascular disease) I73.9 Active 584584195 ALLERGIES Unknown Allergies SOCIAL HISTORY No smoking Hx information available PLAN OF CARE VITAL SIGNS MEDICATIONS Unknown Medications RESULTS No Results PROCEDURES No Known procedures IMMUNIZATIONS No Known Immunizations
--- OUTSIDE RECORDS SUMMARY | 2017-07-16 09:40 | XMS REPORT ---
Author Author CHRISTINE CHEUNG Organization [facility] Address [address] [place] [address] Care Team Providers Care Inspector Repairer Name Role Phone CHRISTINE CHEUNG Unavailable PROBLEMS Type Condition ICD9-CM Code AJO90-KC Code Onset Dates Condition Status SNOMED Code Problem Chronic migraine without aura, not intractable, without status migrainosus G43.709 Active 26591008 Problem Amputation of left lower extremity above knee upon examination V49.76 Active 273986120 Problem Type 2 diabetes mellitus without complications E11.9 Active 192382851 Problem PVD (peripheral vascular disease) I73.9 Active 591682451 ALLERGIES No Information SOCIAL HISTORY Never Assessed [...]
--- OUTSIDE RECORDS SUMMARY | 2017-07-16 09:41 | XMS REPORT ---
Author CHRISTINE Cordova Organization [employer] Address Unknown Phone Unavailable Care Team Providers Care Dry End Operator Name Role Phone CHRISTINE CHEUNG CP [...]
--- OUTSIDE RECORDS SUMMARY | 2017-07-16 09:43 | XMS REPORT ---
Author CHRISTINE Cordova [facility] [employer] Address Unknown Phone Unavailable Care Team Providers Care Skatesman Name Role Phone CHRISTINE CHEUNG CP Unavailable [...] Date End Date Status Dosage Tramadol HCl [facility] [address]-07 50 MG Orally every 6 hrs PRN. MUST LAST 30 DAYS March 14, 2015 1 tablet as needed Diazepam [facility] [address]-22 5 MG Twice a day November 12, 2014 take 1 tablet (5 mg) by oral route 2 times per day oxycodone [facility] 0 10 mg November 15, 2014 take 1 tablet by Oral route every 6 hours PRN Results No Known Results Summary Purpose [employer] Submission
--- OUTSIDE RECORDS SUMMARY | 2017-07-16 09:43 | XMS REPORT ---
Author CHRISTINE Cordova [facility] [employer] Address Unknown Phone Unavailable Care Team Providers Care Managing Editor Name Role Phone CHRISTINE CHEUNG CP Unavailable [...] Instructions Start Date End Date Status Dosage Bactroban [facility] [address]-06 2 % Externally Three times a day January 19, 2016 1 application to affected area Results No Known Results Summary Purpose [employer] Submission
--- OUTSIDE RECORDS SUMMARY | 2017-07-16 09:46 | XMS REPORT ---
Author CHRISITNE Cordova Organization [employer] Address Unknown Phone Unavailable Care Team Providers Care Chiropractic Practice Manager Name Role Phone CHRISTINE CHEUNG CP [...]
--- OUTSIDE RECORDS SUMMARY | 2017-07-16 09:46 | XMS REPORT ---
Author Author CHRISTINE CHEUNG [facility] Address [address] [place] [address] Care Team Providers Care [employer] Consultant Name Role Phone CHRISTINE CHEUNG Unavailable PROBLEMS Type Condition ICD9-CM Code JLL20-CG Code Onset Dates Condition Status SNOMED Code Problem Chronic migraine without aura, not intractable, without status migrainosus G43.709 Active 31980451 Problem Amputation of left lower extremity above knee upon examination V49.76 Active 277944056 Problem Type 2 diabetes mellitus without complications E11.9 Active 540891903 Problem PVD (peripheral vascular disease) I73.9 Active 154380602 ALLERGIES Unknown Allergies SOCIAL HISTORY No smoking Hx information available PLAN OF CARE VITAL SIGNS MEDICATIONS Medication Instructions Dosage Frequency Start Date End Date Duration Status Anaspaz 0.125 MG Orally every 4 hrs as needed 1 tablet before meals Jul, Active RESULTS No Results PROCEDURES No Known procedures IMMUNIZATIONS No Known Immunizations
--- OUTSIDE RECORDS SUMMARY | 2017-07-16 09:46 | XMS REPORT ---
Author Author CHRISTINE CHEUNG [facility] Address [address] [place] [address] Care Team Providers Care Finance Executive Name Role Phone CHRISTINE CHEUNG Unavailable PROBLEMS Type Condition ICD9-CM Code XSY94-DC Code Onset Dates Condition Status SNOMED Code Problem Chronic migraine without aura, not intractable, without status migrainosus G43.709 Active 04091642 Problem Amputation of left lower extremity above knee upon examination V49.76 Active 634830452 Problem Type 2 diabetes mellitus without complications E11.9 Active 026316443 Problem PVD (peripheral vascular disease) I73.9 Active 996048077 ALLERGIES Unknown Allergies SOCIAL HISTORY No smoking Hx information available PLAN OF CARE VITAL SIGNS MEDICATIONS Unknown Medications RESULTS No Results PROCEDURES No Known procedures IMMUNIZATIONS No Known Immunizations
--- OUTSIDE RECORDS SUMMARY | 2017-07-16 09:47 | XMS REPORT ---
Author CHRISTINE Cordova [facility] [employer] Address Unknown Phone Unavailable Care Team Providers Care Tubing Machine Operator Name Role Phone CHRISTINE CHEUNG CP Unavailable Allergies, Adverse Reactions, Alerts Substance Reaction Event Type Ibuprofen nausea Drug Allergy Darvocet-n 100 Info Not Available Drug Allergy Codeine Sulfate anaphylaxis Drug Allergy Morphine stomach upset Drug Allergy Problems Problem Type Condition Code Onset Dates Condition Status Assessment Burn of second degree of right thigh, initial encounter T24.211A Active Assessment Chronic migraine without aura, not intractable, without status migrainosus G43.709 Active Problem Personal history of noncompliance with [...] Date End Date Status Dosage Tramadol HCl [facility] [address]-47 50 MG Orally every 6 hrs PRN. MUST LAST 30 DAYS March 14, 2015 1 tablet as needed Silvadene [facility] [address]-80 1 % Externally Once a day Jun 03, 2015 1 application to affected area NovoLog Flexpen [facility] [id number] 100 UNIT/ML 3 inject 12 units subcutaneously three times daily before meals Proventil HFA [facility] 57268693234 108 (90 Base) MCG/ACT 2 Puff by Inhalation route 4 times per day must keep appt for further refills Diazepam [facility] [address]-79 5 MG Twice a day November 12, 2014 take 1 tablet (5 mg) by oral route 2 times per day oxycodone NDC 0 10 mg November 15, 2014 take 1 tablet by Oral route every 6 hours PRN ProAir HFA [facility] 28870039755 108 (90 Base) MCG/ACT INHALE 2 PUFFS BY MOUTH FOUR TIMES DAILY (NEED TO MAKE AN APPT) promethazine NDC 0 25 mg November 12, 2014 1 tablet by Oral route every 6 hours PRN Procedures Procedure Coding System Code Date Office Visit, Est Pt., Level 3 CPT-4 32318 Jun 03, 2015 Vital Signs Date/Time: Jun 03, 2015 Blood Pressure Systolic 174 mmHg Cardiac Monitoring Heart Rate 76 bpm Height 77 in Blood Pressure Diastolic 90 mmHg Results No Known Results Summary Purpose [employer] Submission
--- OUTSIDE RECORDS SUMMARY | 2017-07-16 09:49 | XMS REPORT ---
Author CHRISTINE Cordova [facility] [employer] Address Unknown Phone Unavailable Care Team Providers Care Superintendent Distribution Name Role Phone CHRISTINE CHEUNG CP Unavailable [...] Chronic kidney disease, unspecified 585.9 Active Medications No Known Medications Results No Known Results Summary Purpose [employer] Submission
--- OUTSIDE RECORDS SUMMARY | 2017-07-16 09:49 | XMS REPORT ---
Author CHRISTINE Cordova Organization [employer] Address Unknown Phone Unavailable Care Team Providers Care Bull Gang Worker Name Role Phone CHRISTINE CHEUNG CP Unavailable Allergies No Known Allergies Problems Problem Type Condition ICD-9 Code Onset Dates Condition Status Problem Personal [...]
--- OUTSIDE RECORDS SUMMARY | 2017-07-16 09:49 | XMS REPORT ---
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 716749759 Problem Diabetes mellitus without mention of complication, type II or unspecified type, not stated as uncontrolled 250.00 Active 603696252 Problem Abdominal pain, unspecified site 789.00 Active 24815472 Problem Dysphagia, unspecified 787.20 Active 18481385 Problem Unspecified local infection of skin and subcutaneous tissue 686.9 Active 80649519 Problem Unspecified orchitis and epididymitis 604.90 Active 772797734 Problem Abdominal pain, generalized 789.07 Active 828278003 Problem Type 2 diabetes mellitus without complications E11.9 Active 748130302 Problem PVD (peripheral vascular disease) I73.9 Active 684226814 Problem Contusion of hip 924.01 Active 74507850 Problem Diarrhea 787.91 Active 02184511 Problem Unspecified disorder of male genital organs 608.9 Active 36054346 Problem Inguinal hernia without mention of obstruction or gangrene, unilateral or unspecified, (not specified as recurrent) 550.90 Active 54426099 Problem Abdominal pain, right lower quadrant 789.03 Active 505056471 Problem Diabetes with neurological manifestations, type II or unspecified type , uncontrolled 250.62 Active 970438742 Problem Urinary tract infection, site not specified 599.0 Active 53078867 Problem Unspecified sleep apnea 780.57 Active 42072368 Problem Dysuria 788.1 Active 47633994 Problem Traumatic amputation of leg(s) (complete) (partial), unilateral, below knee, without mention of complication 897.0 Active 21124778 Problem Diverticulitis of colon (without mention of hemorrhage) 562.11 Active 000919100 Problem Diabetes with other specified manifestations, type II or unspecified type, not stated as uncontrolled 250.80 Active 952403819 Problem Pediculus capitis (head louse) 132.0 Active 20920897 Problem Chronic kidney disease, unspecified 585.9 Active 400781305 Problem Personal history of noncompliance with medical treatment, presenting hazards to health V15.81 Active 847415644 ALLERGIES Unknown Allergies SOCIAL HISTORY No smoking Hx information available PLAN OF CARE VITAL SIGNS MEDICATIONS Medication Instructions Dosage Frequency Start Date End Date Duration Status Wheelchair 1 as directed May, Active RESULTS No Results PROCEDURES No Known procedures IMMUNIZATIONS No Known Immunizations
--- OUTSIDE RECORDS SUMMARY | 2017-07-16 09:49 | XMS REPORT ---
Author CHRISTINE Cordova [facility] [employer] Address Unknown Phone Unavailable Care Team Providers Care Order Selector Name Role Phone CHRISTINE CHEUNG CP Unavailable [...] Start Date End Date Status Dosage Bactroban [facility] [address]-91 2 % Externally Three times a day Aug 10, 2015 1 application to affected area Bactrim DS [facility] [address]-42 800-160 MG Orally 2 times a day Aug 05, 2015 Aug 20, 2015 1 tablet Results No Known Results Summary Purpose [employer] Submission
--- OUTSIDE RECORDS SUMMARY | 2017-07-16 09:51 | XMS REPORT ---
Author EDWIGE Padilla [facility] [employer] Address Unknown Phone Unavailable Care Team Providers Care Relaster Name Role Phone EDWIGE BEDOYA CP Unavailable Allergies, Adverse Reactions, Alerts Substance Reaction Event Type Ibuprofen nausea Drug Allergy Darvocet-n 100 Info Not Available Drug Allergy Codeine Sulfate anaphylaxis Drug Allergy Morphine stomach upset Drug Allergy Problems Problem Type Condition Code Onset Dates Condition Status Assessment PVD (peripheral vascular disease) I73.9 Active Problem Cellulitis and abscess of unspecified [...] Instructions Start Date End Date Status Dosage Doxazosin Mesylate [facility] [address]-48 1 MG Orally Once a day 1 tablet Furosemide [facility] [address]-83 80 MG Orally Once a day 1 tablet Bactroban [facility] [address]-58 2 % Externally Three times a day January 19, 2016 1 application to affected area NovoLog Flexpen [facility] 06169632233 100 UNIT/ML INJECT 12 UNITS SUBCUTANEOUSLY THREE TIMES DAILY BEFORE MEALS Advocate Insulin Pen Ravenel [facility] 508[address]74 31G X 8 MM 3 times a day December 08, 2015 as directed Power Wheelchair [facility] 0 1 DX: bilateral amputee. March 10, 2016 as directed Lomotil [facility] [address]-33 2.5-0.025 MG Orally Four times a day Jul 08, 2015 1 tablet NEEDED Pantoprazole Sodium [facility] [address]-39 40 MG Orally Once a day 1 tablet Bactroban [facility] [address]-94 2 % Externally Three times a day Aug 10, 2015 1 application to affected area Losartan Potassium [facility] 38845199218 100 MG TAKE ONE TABLET BY MOUTH DAILY promethazine [facility] 0 25 mg November 12, 2014 1 tablet by Oral route every 6 hours PRN ProAir HFA [facility] 07831533234 108 (90 Base) MCG/ACT INHALE 2 PUFFS BY MOUTH FOUR TIMES DAILY (NEED TO MAKE AN APPT) Aspirin [facility] [address]-90 325 MG Orally Once a day 1 tablet Nitroglycerin [facility] [address]-35 0.4 MG Sublingual not defined Silvadene [facility] [address]-77 1 % Externally Once a day Jun 03, 2015 1 application to affected area Procedures Procedure Coding System Code Date Office Visit, Est Pt., Level 3 CPT-4 58636 March 19, 2016 Vital Signs Date/Time: March 19, 2016 Cardiac Monitoring Heart Rate 82 bpm Weight 251 lbs Height 77 in Blood Pressure Diastolic 102 mmHg Blood Pressure Systolic 190 mmHg Results No Known Results Summary Purpose [employer] Submission
--- OUTSIDE RECORDS SUMMARY | 2017-07-16 09:51 | XMS REPORT ---
Author CHRISTINE Cordova [facility] [employer] Address Unknown Phone Unavailable Care Team Providers Care Hotel Assistant General Manager Name Role Phone CHRISTINE CHEUNG CP [...] Instructions Start Date End Date Status Dosage Nadine [facility] [address]-36 0.5 % Externally May 24, 2015 as directed Results No Known Results Summary Purpose [employer] Submission
--- OUTSIDE RECORDS SUMMARY | 2017-07-16 09:51 | XMS REPORT ---
Author CHRISTINE Cordova Organization [employer] Address Unknown Phone Unavailable Care Team Providers Care Lumite Injector Name Role Phone CHRISTINE CHEUNG CP Unavailable [...]
--- OUTSIDE RECORDS SUMMARY | 2017-07-16 09:53 | XMS REPORT ---
Author Author CHRISTINE CHEUNG [facility] Address [address] [place] [address] Care Team Providers Care Retail Helper Name Role Phone CHRISTINE CHEUNG Unavailable PROBLEMS Type Condition ICD9-CM Code VWD62-ZN Code Onset Dates Condition Status SNOMED Code Problem Chronic migraine without aura, not intractable, without status migrainosus G43.709 Active 61339148 Problem Amputation of left lower extremity above knee upon examination V49.76 Active 898119103 Problem Type 2 diabetes mellitus without complications E11.9 Active 099312109 Problem PVD (peripheral vascular disease) I73.9 Active 208050156 ALLERGIES Unknown Allergies SOCIAL HISTORY No smoking Hx information available PLAN OF CARE VITAL SIGNS MEDICATIONS Medication Instructions Dosage Frequency Start Date End Date Duration Status Sklice 0.5 % Externally rinse well. apply to dry hair let set 10 minutes Sep, 30 days Active RESULTS No Results PROCEDURES No Known procedures IMMUNIZATIONS No Known Immunizations
--- OUTSIDE RECORDS SUMMARY | 2017-07-16 09:54 | XMS REPORT ---
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 557447048 Problem Diabetes mellitus without mention of complication, type II or unspecified type, not stated as uncontrolled 250.00 Active 949453140 Problem Abdominal pain, unspecified site 789.00 Active 15856060 Problem Dysphagia, unspecified 787.20 Active 42006357 Problem Unspecified local infection of skin and subcutaneous tissue 686.9 Active 19471098 Problem Unspecified orchitis and epididymitis 604.90 Active 551002827 Problem Abdominal pain, generalized 789.07 Active 030078610 Problem Type 2 diabetes mellitus without complications E11.9 Active 963057090 Problem PVD (peripheral vascular disease) I73.9 Active 048345676 Problem Contusion of hip 924.01 Active 37014171 Problem Diarrhea 787.91 Active 81075153 Problem Unspecified disorder of male genital organs 608.9 Active 66416672 Problem Inguinal hernia without mention of obstruction or gangrene, unilateral or unspecified, (not specified as recurrent) 550.90 Active 46360747 Problem Abdominal pain, right lower quadrant 789.03 Active 714359688 Problem Diabetes with neurological manifestations, type II or unspecified type , uncontrolled 250.62 Active 599379667 Problem Urinary tract infection, site not specified 599.0 Active 50677215 Problem Unspecified sleep apnea 780.57 Active 69775281 Problem Dysuria 788.1 Active 42101413 Problem Traumatic amputation of leg(s) (complete) (partial), unilateral, below knee, without mention of complication 897.0 Active 97986290 Problem Diverticulitis of colon (without mention of hemorrhage) 562.11 Active 626426850 Problem Diabetes with other specified manifestations, type II or unspecified type, not stated as uncontrolled 250.80 Active 996125863 Problem Pediculus capitis (head louse) 132.0 Active 24208471 Problem Chronic kidney disease, unspecified 585.9 Active 598973303 Problem Personal history of noncompliance with medical treatment, presenting hazards to health V15.81 Active 256407087 ALLERGIES Unknown Allergies SOCIAL HISTORY No smoking Hx information available PLAN OF CARE VITAL SIGNS MEDICATIONS Medication Instructions Dosage Frequency Start Date End Date Duration Status Power Wheelchair 1 as directed Mar, Active RESULTS No Results PROCEDURES No Known procedures IMMUNIZATIONS No Known Immunizations
--- OUTSIDE RECORDS SUMMARY | 2017-07-16 09:58 | XMS REPORT ---
Author CHRISTINE Cordova [facility] [employer] Address Unknown Phone Unavailable Care Team Providers Care Reflesher Name Role Phone CHRISTINE CHEUNG CP Unavailable [...] Instructions Start Date End Date Status Dosage Glucometer [facility] 0 E11.9. DISPENSE PER INSURANCE March 28, 2016 as directed Lomotil [facility] [address]-79 2.5-0.025 MG Orally Four times a day Jul 08, 2015 1 tablet NEEDED Results No Known Results Summary Purpose [employer]Works Submission
--- OUTSIDE RECORDS SUMMARY | 2017-07-16 10:01 | XMS REPORT ---
Author CHRISTINE Cordova [facility] [employer] Address Unknown Phone Unavailable Care Team Providers Care Director Of Quality Improvement Name Role Phone CHRISTINE CHEUNG CP Unavailable [...] Instructions Start Date End Date Status Dosage Power Wheelchair NDC 0 1 DX: bilateral amputee. March 10, 2016 as directed Results No Known Results Summary Purpose [employer] Submission
--- OUTSIDE RECORDS SUMMARY | 2017-07-16 10:01 | XMS REPORT ---
Author Author CHRISTINE CHEUNG [facility] Address [address] [place] [address] Care Team Providers Care Hot Roller Name Role Phone CHRISTINE CHEUNG Unavailable PROBLEMS Type Condition ICD9-CM Code QGO24-LO Code Onset Dates Condition Status SNOMED Code Problem Chronic migraine without aura, not intractable, without status migrainosus G43.709 Active 65381968 Problem Amputation of left lower extremity above knee upon examination V49.76 Active 743191649 Problem Type 2 diabetes mellitus without complications E11.9 Active 011448344 Problem PVD (peripheral vascular disease) I73.9 Active 123530033 ALLERGIES Substance Reaction Event Type Date Status Tramadol HCl nausea Drug Allergy Sep, Active Ibuprofen nausea Drug Allergy Sep, Active Darvocet-n 100 Unknown Drug Allergy Sep, Active Codeine Sulfate anaphylaxis Drug Allergy Sep, Active Morphine stomach upset Drug Allergy Sep, Active SOCIAL HISTORY No smoking Hx information available PLAN OF CARE VITAL SIGNS Height 77 in 2016-09-21 Weight 215 lbs 2016-09-21 Temperature 98.5 degrees Fahrenheit 2016-09-21 Heart Rate 88 bpm 2016-09-21 Respiratory Rate 24 2016-09-21 BMI 25.49 kg/m2 2016-09-21 Blood pressure systolic 198 mmHg 2016-09-21 Blood pressure diastolic 102 mmHg 2016-09-21 MEDICATIONS Medication Instructions Dosage Frequency Start Date End Date Duration Status ProAir HFA 108 (90 Base) MCG/ACT INHALE 2 PUFFS FOUR TIMES DAILY (NEED TO MAKE APPT) 25 Active Losartan Potassium 100 MG TAKE ONE TABLET BY MOUTH DAILY 30 Active Furosemide 80 MG Orally Once a day 1 tablet 24h Active Doxazosin Mesylate 1 MG Orally Once a day 1 tablet 24h Active UltiCare Short Pen [place] 31G X 8 MM USE DIRECTED WITH INSULIN THREE TIMES DAILY 30 Active NovoLog Flexpen 100 UNIT/ML INJECT 12 UNITS SUBCUTANEOUSLY THREE TIMES DAILY BEFORE MEALS 31 Active Wheelchair 1 as directed May, Active Lomotil 2.5-0.025 MG Orally Four times a day 1 tablet NEEDED 6h 06 Jul, 2015 Active promethazine 25 mg 1 tablet by Oral route every 6 hours PRN 13 Oct, 2014 Active Bactroban 2 % Externally Three times a day 1 application to affected area 8h Sep, Active Pantoprazole Sodium 40 MG Orally Once a day 1 tablet 24h Active Advocate Insulin Pen [place] 31G X 8 MM as directed 8h Dec, Active Bactroban 2 % Externally Three times a day 1 application to affected area 8h Active True Metrix Meter w/Device as directed Mar, Active Diphenoxylate-Atropine 2.5-0.025 MG TAKE 1 TABLET BY MOUTH NEEDED FOR FOUR TIMES DAILY 8 Active Anaspaz 0.125 MG Orally every 4 hrs as needed 1 tablet before meals Jul, Active Aspirin 325 MG Orally Once a day 1 tablet 24h Active Hyoscyamine Sulfate 0.125 MG TAKE 1 TABLET BEFORE MEALS EVERY FOUR HOURS NEEDED 30 Active True Metrix Blood Glucose Test - as directed Mar, Active Mupirocin 2 % APPLY TO AFFECTED AREA THREE TIMES DAILY 7 Active Nitrostat 0.4 MG TAKE 1 TABLET UNDER TONGUE NEEDED, MAY REPEAT EVERY 5 MINUTES - REPORT AFTER 3 Active Bactrim DS 800-160 MG Orally Twice a day 1 tablet 12h Sep,Sep 10 day(s) Active RESULTS No Results PROCEDURES Procedure Date Ordered Related Diagnosis Body Site Office Visit, Est Pt., Level 3 Sep 21, 2016 IMMUNIZATIONS No Known Immunizations
--- OUTSIDE RECORDS SUMMARY | 2017-07-16 10:04 | XMS REPORT ---
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
--- OUTSIDE RECORDS SUMMARY | 2017-07-16 10:05 | XMS REPORT ---
Author Author CHRISTINE CHEUNG [facility] Address [address] [place] [address] Care Team Providers Care Scenic Artist Name Role Phone CHRISTINE CHEUNG Unavailable PROBLEMS Type Condition ICD9-CM Code PWO84-XB Code Onset Dates Condition Status SNOMED Code Problem Chronic migraine without aura, not intractable, without status migrainosus G43.709 Active 27227155 Problem Amputation of left lower extremity above knee upon examination V49.76 Active 043789755 Problem Type 2 diabetes mellitus without complications E11.9 Active 377274492 Problem PVD (peripheral vascular disease) I73.9 Active 640098204 ALLERGIES Unknown Allergies SOCIAL HISTORY No smoking Hx information available PLAN OF CARE VITAL SIGNS MEDICATIONS Medication Instructions Dosage Frequency Start Date End Date Duration Status Sklice 0.5 % Externally rinse well. apply to dry hair let set 10 minutes Sep, Active RESULTS No Results PROCEDURES No Known procedures IMMUNIZATIONS No Known Immunizations
--- OUTSIDE RECORDS SUMMARY | 2017-07-16 10:05 | XMS REPORT ---
Author Author CHRISTINE CHEUNG [facility] Address [address] [place] [address] Care Team Providers Care Decorative Engraver Apprentice Name Role Phone CHRISTINE CHEUNG Unavailable PROBLEMS Type Condition ICD9-CM Code IBA75-RC Code Onset Dates Condition Status SNOMED Code Problem Chronic migraine without aura, not intractable, without status migrainosus G43.709 Active 42071130 Problem Amputation of left lower extremity above knee upon examination V49.76 Active 011921734 Problem Type 2 diabetes mellitus without complications E11.9 Active 248454663 Problem PVD (peripheral vascular disease) I73.9 Active 660310493 ALLERGIES Unknown Allergies SOCIAL HISTORY No smoking Hx information available PLAN OF CARE VITAL SIGNS MEDICATIONS Unknown Medications RESULTS No Results PROCEDURES No Known procedures IMMUNIZATIONS No Known Immunizations
[2017-07-16] MEDS ORDERED: morphine INJ 10 MG/ML 1ML (SYR OR VIAL) ONE (10:41)
[2017-07-16] MEDS ORDERED: morphine INJ 10 MG/ML 1ML (SYR OR VIAL) IVP STA (10:46)
[2017-07-16] MEDS ORDERED: APIXABAN 2.5 MG (ELIQUIS) TABLET PO ONE (11:15)
[2017-07-16] MEDS: NS IV 1000 ML 1,000 ML IV SCH (12:00)
[2017-07-16] MEDS ORDERED: CATHETER FLUSH 10 ML SYR IV PRN (12:00)
--- NOTE | 2017-07-16 12:50 | Consultation-Cardiology ---
HPI-Cardiology Cardiology Consultation: Date of Consultation 07/16/17 Time Seen by Provider: 12:55 Date of Admission 07-16-17 Attending Physician Anabela Turner MD Admitting Physician Ke[facility] Consulting Physician STEVE ELIVA HPI: Chief Complaint: Chest pain Mr. To is a 57 year old male admitted to [facility] from the ED. He reports he has had continuous lower, right sided chest pain with radiation through his back and some up into his neck. He describes it as a squeezing sensation. He states he takes nitro sublingual and ASA at home which lessens the pain after about 40 minutes. However, the pain never completely goes away. He is currently rating his pain 4/10. He reports frequent nausea and diarrhea over the last month. He reports chronic palpitations. He has chronic mod dyspnea which is unchanged. He continues to smoke cigs. He reports he was seen at [facility] and [facility] 2 weeks ago for kidney and chest pain. He reports he had a stress test and echocardiogram there. He states he is to see Dr. Swift ( [place] [facility]) next week for consideration of dialysis. He denies any swelling in his thighs (RBKA and LAKA). He is currently eating a hamburger and tater tots at the time of this visit. Review of Systems-Cardiology Review of Systems Constitutional: chills, fever, tiredness Eyes: No blindness, No vision change Ears/Nose/Throat: No epistaxis Cardiovascular: As described under HPI Gastrointestinal: diarrhea, nausea Genitourinary: No dysuria Musculoskeletal: back pain Skin: No rash, No ulcerations Psychiatric/Neurological: headache, No anxiety Hematologic: No bleeding abnormalities All Other Systems Reviewed Negative Unless Noted: Yes RCT-Izihzc-Jejxvy Hx Patient Social History Alcohol Use: Past History Recreational Drug Use: Yes Smoking Status: Current Everyday Smoker Recent Foreign Travel: No Recent Infectious Disease Expo: No Hospitalization with Isolation: Denies Immunizations Up To Date Tetanus Booster (TDap): Less than 5yrs Date of Pneumonia Vaccine: Apr 24, 2013 Date of Influenza Vaccine: Jun 20, 2014 Past Medical History PMH As described under Assessment. Family Medical History Family History: Patient reports no known family medical history. Allergies and Home Medications Allergies Coded Allergies: codeine (Unverified Allergy, Severe, EDEMA, RESPIRATORY, 2/26/15) PATIENT TAKES HYDROCODONE AT HOME propoxyphene (Verified Allergy, Severe, THROAT SWELLED SHUT, 10/28/14) bee pollen (Unverified Allergy, Mild, 07/03/13) tramadol (Verified Allergy, Unknown, SEVERE MIGRAINE, 03/25/14) ibuprofen (Verified Adverse Reaction, Unknown, NAUSEA, 10/28/14) Home Medications Albuterol Sulfate 8.5 Gm Hfa.aer.ad, 2 PUFF IH QID, (Reported) Aspirin 325 Mg Tablet.dr, 325 MG PO DAILY, (Reported) Clopidogrel Bisulfate 75 Mg Tablet, 75 MG PO DAILY, #30 Ref 5 Prescribed by: BRITT MCDANIELS on 04/24/16 1701 Diphenoxylate HCl/Atropine 1 Each Tablet, 1 TAB PO Q4H PRN for DIARRHEA, ( Reported) Insulin Aspart 300 Units/3 Ml Solution, SQ SLIDING/SCALE, (Reported) Losartan Potassium 100 Mg Tablet, 100 MG PO DAILY, (Reported) Metoprolol Succinate 25 Mg Tab.er.24h, 25 MG PO DAILY, #30 Ref 5 Prescribed by: BRITT MCDANIELS on 04/24/16 1701 Mupirocin 22 Gm Oint...g., TP TID PRN for SKIN LESIONS, (Reported) Nitroglycerin 0.4 Mg Tab.subl, 0.4 MG PO UD PRN for CHEST PAIN, (Reported) PLACE 1 TABLET UNDER TONGUE EVERY 5 MINUTES FOR 3 DOSES Pantoprazole Sodium 40 Mg Tablet.dr, 40 MG PO DAILY, (Reported) Pravastatin Sodium 40 Mg Tablet, 40 MG PO DAILY, #30 Ref 5 Prescribed by: BRITT MCDANIELS on 04/24/16 1701 Physical Exam-Cardiology Physical Exam Vital Signs/I&O Vital Sign - Last 12Hours 07/16/17 07/16/17 07/16/17 07/16/17 08:54 08:54 08:54 11:40 Temp 97.9 Pulse 65 77 Resp 18 19 B/P (MAP) 163/101 Pulse Ox 96 98 96 O2 Delivery Nasal Cannula Nasal Cannula Nasal Cannula O2 Flow Rate 2.00 2.0 Capillary Refill : Less Than 3 Seconds Constitutional: AAO x 3 HEENT: PERRL, hearing is well preserved Neck: No carotid bruit Respiratory: No accessory muscle use, No respiratory distress, chest expansion is symmetric, chest is bilaterally symmetric, lungs clear to auscultation, other (prolonged expiratory phase) Cardiovascular: irregularly irregular, No JVD, S1 and S2, systolic murmur Gastrointestinal: No tender, soft, round, audible bowel sounds Rectal: deferred Extremities: other (Right BKA and left AKA), No significant edema Neurologic/Psychiatric: grossly intact Skin: No rash, No ulcerations Data Review Labs Laboratory Tests 07/16/17 09:00: White Blood Count 8.2, Red Blood Count 4.24L, Hemoglobin 13.0L, Hematocrit 38L, Mean Corpuscular Volume 89, Mean Corpuscular Hemoglobin 31, Mean Corpuscular Hemoglobin Concent 35, Red Cell Distribution Width 14.5, Platelet Count 191, Mean Platelet Volume 11.1H, Neutrophils (%) (Auto) 72, Lymphocytes (%) (Auto) 15 , Monocytes (%) (Auto) 8, Eosinophils (%) (Auto) 5, Basophils (%) (Auto) 1, Neutrophils # (Auto) 5.9, Lymphocytes # (Auto) 1.2, Monocytes # (Auto) 0.7, Eosinophils # (Auto) 0.4H, Basophils # (Auto) 0.0, Prothrombin Time 14.2, INR Comment 1.1, Activated Partial Thromboplast Time 28, Sodium Level 136, Potassium Level 4.2, Chloride Level 106, Carbon Dioxide Level 22, Anion Gap 8, Blood Urea Nitrogen 30H, Creatinine 3.04H, Estimat Glomerular Filtration Rate 21 , BUN/Creatinine Ratio 10, Glucose Level 243H, Calcium Level 8.5, Magnesium Level 1.9, Total Bilirubin 0.7, Aspartate Amino Transf (AST/SGOT) 15, Alanine Aminotransferase (ALT/SGPT) 13, Alkaline Phosphatase 114, Myoglobin 145.6H, Troponin I < 0.30, Total Protein 6.4, Albumin 3.0L, Amylase Level 51, Lipase 37 07/16/17 09:05: Urine Color YELLOW, Urine Clarity CLEAR, Urine pH 7, Urine Specific [place] 1.010L, Urine Protein 3+H, Urine Glucose (UA) 1+H, Urine Ketones NEGATIVE, Urine Nitrite NEGATIVE, Urine Bilirubin NEGATIVE, Urine Urobilinogen NORMAL, Urine Leukocyte Esterase NEGATIVE, Urine RBC (Auto) 2+H, Urine RBC 2-5H, Urine WBC NONE, Urine Crystals NONE, Urine Bacteria NEGATIVE, Urine Casts NONE, Urine Mucus NEGATIVE, Urine Culture Indicated NO Laboratory Tests 07/16/17 09:00 Radiology NAME: MICHAEL TO [facility] REC#: [id number] PT STATUS: ADM Amy : 1960 PHYSICIAN: ANANDA GONCALVES MD ADMIT DATE: 07/16/17 Signed Date of Exam: 07/16/17 CHEST 1 VIEW, AP/PA ONLY EXAMINATION: Portable upright radiograph of the chest. INDICATION: Chest pain. FINDINGS: The lungs demonstrate interstitial thickening suggestive of vascular congestion with medial right basilar infiltrates or atelectasis. There is suggestion of small effusions. No pneumothorax. The mediastinum and keyanna appear unremarkable. Sternotomy wires are seen. There is a left subclavian [id number]-jmcziytj with the tip at the SVC level. IMPRESSION: Cardiomegaly with mild vascular congestion. Mild right basilar infiltrates or atelectasis. Dictated by: Dictated on workstation # [id number] Dict: 07/16/17916 Trans: 07/16/17 115 Interpreted by: HOLLIE PADILLA MD Electronically signed by: HOLLIE PADILLA MD 07/16/17 1152 ECG Impression ECG Initial ECG Impression: Atrial Fibrillation A/P-Cardiology Assessment/Admission Diagnosis Chest pain without any evidence of ACS Chronic pain syndrome, including recurrent chest and abdominal pain, being followed by his fam phy ([facility]) Coronary artery disease with a history of coronary artery bypass surgery and coronary stenting. Last cardiac cath was in Jun 2013 following NSTEMI. He underwent Promus 2.25x12 stenting of OM2. There was patent stetn in prox and ostial OM 1. There were tandem up to 80% stenoses in mid LAD and complete occlusion of the mid RCA. There was patent GUERRERO to distal LAD and patent SVG ( with 30% prox and 50% distal stenoses) to PDA. LVEF was 65% and mod elev of LVEDP PAF - currently a-fib/flutter with controlled rate CKD stage 4, likely due to diabetic nephropathy He has been considered intolerant to warfarin due to a history of severe noncompliance with medications. H/O noncompliance with NOACs despite a full understanding of all of the issues (multiple previous attempts have been previously unsuccessful) - wishes to try NOAC again Continuing tobaccoism, cessation advised Chronic pain syndrome, including severe backaches. Maturity onset diabetes mellitus, insulin requiring, being followed by [facility]. Chronic obstructive pulmonary disease. Right-sided below-knee amputation (2003) because of diabetic foot ulcers and osteomyelitis. 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 He reports recent cardiac w/u at [facility] (stress test and echo). We have requested those results Chronic a-fib with a controlled rate. He is currently on ASA and Plavix. He has been non-compliant in the past with OAC for stroke prophylaxis. However, we have again advised OAC. He is agreeable to Eliquis. We will stop Plavix. Continue ASA at 81mg daily d/t h/o CAD. We will start Eliquis 2.5mg BID d/t CKD stage 4 with GFR of 21. Continue BB, ARB and statin. Adjust accordingly for BP control Monitor lab closely Chronic pain management per medical services We would like to thank the medical services for this consult Further recommendations will be based on his hospital course This consult has been scribed by Jesus Taylor APRN on behalf of Dr. Mcdaniels after discussion regarding plan of care. Clinical Quality Measures AMI/AHF: ASA po Prior to arrival: Yes Physician Assessment Physician Assessment Continues to have R lateral chest pain (for weeks, w/o remission, although with changes in intensity). Has chronic BOTELLO Lungs: fair air entry, prolonged exp Cor: irreg, rate-controlled Ext: no c/c/e; bilat lower limb amputations A&R * As documented in our note above that I updated (italics) and as noted below * Complex management due to multiple comorbidities and intermittent noncompliance * Again instructed to avoid any tobacco use * D/c Plavix and initiate apixaban dose-adjusted for CKD 4. This is for stroke prophylaxis * Continue aspirin for CAD * He insists on a regular diet. Will allow, for may otherwise sign out AMA * Monitor labs * Obtain records of recent card w/u from [facility] * Monitor labs STEVE TAYLOR POWER HOUSE CONTROL ROOM OPERATOR Jul 16, 2017 12:50 BRITT MCDANIELS MD FACP [facility] Jul 16, 2017 14:10
[2017-07-16] MEDS: CATHETER FLUSH 10 ML SYR IV SCH ×2 (14:14→20:36)
[2017-07-16] MEDS ORDERED: NITROGLYCERIN 0.4 MG SL TABS BTL 25'S SL PRN ×2 (14:15→15:00)
[2017-07-16] MEDS ORDERED: METO-333 PO (14:22)
[2017-07-16] MEDS ORDERED: PRAV40TA2 PO (14:22)
[2017-07-16] MEDS ORDERED: RT-ALBUINH IH (14:22)
[2017-07-16] MEDS ORDERED: DOXA2TAB2 PO (14:22)
[2017-07-16] MEDS ORDERED: FURO80TA3 PO (14:22)
[2017-07-16] MEDS ORDERED: CLOP75TA28 PO (14:22)
[2017-07-16] MEDS ORDERED: RT-ALBUTEROL SULF 2.5 MG/3 ML PRE-MIX VIAL IH PRN (15:15)
[2017-07-16] MEDS ORDERED: OXYCODONE HCL PO PRN (15:15)
[2017-07-16] MEDS ORDERED: OXYC-529 PO (15:20)
[2017-07-16 15:57] LABS: CREATINE KINASE 87 U/L (30-200)
[2017-07-16 16:03] LABS: MYOGLOBIN SERUM 149.5 NG/ML (10.0-92.0); TROPONIN I < 0.30 NG/ML (<0.30)
[2017-07-16 16:15] VITALS: BP 163/92
[2017-07-16] MEDS: RT-ALBUTEROL SULF 2.5 MG/3 ML PRE-MIX VIAL IH SCH (19:30)
[2017-07-16 20:27] VITALS: BP 192/99
[2017-07-16] MEDS ORDERED: ONDANSETRON 4 MG (ZOFRAN) ORAL DISSOLVE TAB PO PRN (20:30)
[2017-07-16] MEDS: APIXABAN 2.5 MG (ELIQUIS) TABLET PO SCH (20:36)
[2017-07-16] MEDS: morphine INJ 4 MG/ML 1 ML (VIAL/SYRINGE) IV PRN (20:37)
[2017-07-16] MEDS: inSUlin ASPART (NovoLOG) 1 UNIT/0.01 ML (CHARGE PER UNIT) SC SCH (20:42)
[2017-07-16] MEDS ORDERED: meTOprolol TARTRATE 25 MG (LOPRESSOR) TABLET PO SCH (21:00)
[2017-07-16] MEDS ORDERED: SIMvastatin 20 MG (ZOCOR) TAB PO SCH (21:00)
[2017-07-16 22:42] VITALS: BP 174/92
[2017-07-16] MEDS ORDERED: doxAzosin 2 MG (CARDURA) TAB ONE (23:31)
[2017-07-16] MEDS: ONDANSETRON 4 MG/2 ML (SDV) Z0FRAN IVP PRN (23:57)
[2017-07-17] VITALS: BP 182/87
[2017-07-17 00:15] VITALS: BP 191/100
[2017-07-17] MEDS: morphine INJ 4 MG/ML 1 ML (VIAL/SYRINGE) IV PRN (03:44)
[2017-07-17 04:00] VITALS: BP 171/93
[2017-07-17] MEDS: CATHETER FLUSH 10 ML SYR IV SCH (06:28)
[2017-07-17 06:29] LABS: BASOPHILS # (AUTO) 0.1 10^3/uL (0.0-0.1); BASOPHILS % (AUTO) 1 % (0-10); EOSINOPHILS # (AUTO) 0.4 10^3/uL (0.0-0.3); EOSINOPHILS % (AUTO) 6 % (0-10); LYMPHOCYTES # (AUTO) 1.4 X 10^3 (1.0-4.0); LYMPHOCYTES % (AUTO) 19 % (12-44); MEAN CORPUSCULAR HEMOGLOBIN 30 PG (25-34); MEAN CORPUSCULAR HGB CONC 33 G/DL (32-36); MEAN CORPUSCULAR VOLUME 92 FL (80-99); MEAN PLATELET VOLUME 11.4 FL (7.4-10.4); MONOCYTES # (AUTO) 0.9 X 10^3 (0.0-1.0); MONOCYTES % (AUTO) 12 % (0-12); NEUTROPHILS # (AUTO) 4.4 X 10^3 (1.8-7.8); NEUTROPHILS % (AUTO) 62 % (42-75); PLATELET COUNT 194 10^3/uL (130-400); RED BLOOD COUNT 4.05 10^6/uL (4.35-5.85); RED CELL DISTRIBUTION WIDTH 14.6 % (10.0-14.5); WHITE BLOOD COUNT 7.1 10^3/uL (4.3-11.0)
[2017-07-17] MEDS: NS IV 1000 ML 1,000 ML IV SCH (06:52)
[2017-07-17] MEDS: ONDANSETRON 4 MG/2 ML (SDV) Z0FRAN IVP PRN (06:52)
[2017-07-17] MEDS: inSUlin ASPART (NovoLOG) 1 UNIT/0.01 ML (CHARGE PER UNIT) SC SCH ×2 (06:56→13:15)
[2017-07-17 07:04] LABS: ALBUMIN 2.8 GM/DL (3.2-4.5); BILIRUBIN,TOTAL 0.4 MG/DL (0.1-1.0); CREATININE SERUM 3.23 MG/DL (0.60-1.30); POTASSIUM 4.5 MMOL/L (3.6-5.0); TOTAL PROTEIN 5.8 GM/DL (6.4-8.2)
[2017-07-17 08:00] VITALS: BP 158/98
[2017-07-17] MEDS ORDERED: meTOprolol TARTRATE 25 MG (LOPRESSOR) TABLET PO SCH (09:00)
[2017-07-17] MEDS ORDERED: NON-FORMULARY MEDICATION 1 EA EA (Pravastatin Sodium 40 MG) PO SCH (09:00)
[2017-07-17] MEDS ORDERED: LOSARTAN 50 MG (COZAAR) TAB PO SCH (09:00)
[2017-07-17] MEDS ORDERED: ASPIRIN 81 MG CHEW (CHILDREN'S ASA) PO SCH (09:00)
[2017-07-17] MEDS ORDERED: doxAzosin 2 MG (CARDURA) TAB PO SCH (09:00)
[2017-07-17] MEDS: APIXABAN 2.5 MG (ELIQUIS) TABLET PO SCH (09:27)
--- NOTE | 2017-07-17 09:39 | Progress Note-Cardiology ---
Cardiology SOAP Progress Note Subjective: Sitting up in bed. He denies any CP today. He is reporting "kidney pain", which he states has been present for the last several months. Wants to go home today. No c/o dyspnea, palpitations, syncope or near syncope. Objective: I&O/Vital Signs Vital Sign - Last 12Hours 07/17/17 07/17/17 07/17/17 07/17/17 01:00 04:00 07:00 08:00 Temp 97.5 96.1 Pulse 69 77 75 71 Resp 19 16 B/P (MAP) 171/93 158/98 Pulse Ox 97 95 O2 Delivery Room Air Room Air 07/17/17 10:37 Pulse Ox 95 O2 Delivery Room Air Weight (Pounds): 230 Weight (Ounces): 0.0 Weight (Calculated Kilograms): 104.846550 Constitutional: AAO x 3 Respiratory: No accessory muscle use, No respiratory distress, chest expansion is symmetric, chest is bilaterally symmetric, lungs clear to auscultation, other (prolonged expiratory phase) Cardiovascular: irregularly irregular, No JVD, S1 and S2, systolic murmur Gastrointestional: No tender, soft, round, audible bowel sounds Extremities: other (Right BKA and left AKA), No significant edema Neurologic/Psychiatric: grossly intact Skin: No rash, No ulcerations Results/Procedures: Labs Laboratory Tests 07/16/17 15:35: Total Creatine Kinase 87, Myoglobin 149.5H, Troponin I < 0.30 07/16/17 20:36: Glucometer 213H 07/17/17 06:00: White Blood Count 7.1, Red Blood Count 4.05L, Hemoglobin 12.3L, Hematocrit 37L, Mean Corpuscular Volume 92, Mean Corpuscular Hemoglobin 30, Mean Corpuscular Hemoglobin Concent 33, Red Cell Distribution Width 14.6H, Platelet Count 194, Mean Platelet Volume 11.4H, Neutrophils (%) (Auto) 62, Lymphocytes (%) (Auto) 19 , Monocytes (%) (Auto) 12, Eosinophils (%) (Auto) 6, Basophils (%) (Auto) 1, Neutrophils # (Auto) 4.4, Lymphocytes # (Auto) 1.4, Monocytes # (Auto) 0.9, Eosinophils # (Auto) 0.4H, Basophils # (Auto) 0.1, Sodium Level 136, Potassium Level 4.5, Chloride Level 105, Carbon Dioxide Level 24, Anion Gap 7, Blood Urea Nitrogen 33H, Creatinine 3.23H, Estimat Glomerular Filtration Rate 20, BUN/ Creatinine Ratio 10, Glucose Level 198H, Calcium Level 8.0L, Total Bilirubin 0.4 , Aspartate Amino Transf (AST/SGOT) 16, Alanine Aminotransferase (ALT/SGPT) 14, Alkaline Phosphatase 96, Total Protein 5.8L, Albumin 2.8L, Triglycerides Level 113, Cholesterol Level 126, LDL Cholesterol Direct 87, VLDL Cholesterol 23, HDL Cholesterol 26L 07/17/17 06:56: Glucometer 170H 07/17/17 11:13: Glucometer 229H Laboratory Tests 07/16/17 09:00 07/17/17 06:00 A/P: Assessment: Chest pain without any evidence of ACS Chronic pain syndrome, including recurrent chest and abdominal pain, being followed by his fam phy ([facility]) Coronary artery disease with a history of coronary artery bypass surgery and coronary stenting. Last cardiac cath was in Jun 2013 following NSTEMI. He underwent Promus 2.25x12 stenting of OM2. There was patent stetn in prox and ostial OM 1. There were tandem up to 80% stenoses in mid LAD and complete occlusion of the mid RCA. There was patent GUERRERO to distal LAD and patent SVG ( with 30% prox and 50% distal stenoses) to PDA. LVEF was 65% and mod elev of LVEDP PAF - currently a-fib/flutter with controlled rate CKD stage 4, likely due to diabetic nephropathy - following with [place] [facility] services (Dr. Be Swift) He has been considered intolerant to warfarin due to a history of severe noncompliance with medications. H/O noncompliance with NOACs despite a full understanding of all of the issues (multiple previous attempts have been previously unsuccessful) - wishes to try NOAC again Continuing tobaccoism, cessation advised Chronic pain syndrome, including severe backaches. Maturity onset diabetes mellitus, insulin requiring, being followed by [facility]. Chronic obstructive pulmonary disease. Right-sided below-knee amputation (2003) because of diabetic foot ulcers and osteomyelitis. L AKA due to PAD and gangrene (Dr Trejo in 2014) Hypertension Non-compliance with medications and medical instructions H/o marijuana abuse - cessation advised H/o migraine headaches Mild carotid arterial disease on u/s of 10/22/14 Paranoid schizophrenia, by history, managed by his fam phy ([facility]) Plan: Complex management issue d/t multiple co-morbidities as listed above Chest pain with no evidence of ACS thus far. He reports recent cardiac w/u at [facility] (stress test and echo). We have requested those results, but have not received them yet. Chronic a-fib with a controlled rate. Continue Eliquis for stroke prophylaxis at 2.5mg BID d/t CKD stage 4 with GFR of 21. Continue ASA at 81mg daily d/t h/o CAD. BP not well controlled. D/t CKD he is not a good candidate for ARB or CHUCKY. BB tx was discontinued by medical services. We will start [facility] Monitor lab closely Chronic pain management per medical services Physician Assessment Physician Assessment Wishes to go home. States recent cardiac w/u at [facility] was negaive Pain improved, but not resolved: R lateral chest pain (for weeks, w/o remission , although with changes in intensity). Has chronic BOTELLO Lungs: fair air entry, prolonged exp Cor: irreg, rate-controlled Ext: no c/c/e; bilat lower limb amputations A&R * As documented in our note above that I updated (italics) and as noted below * Complex management due to multiple comorbidities and intermittent noncompliance * Again instructed to avoid any tobacco use * Continue aspirin and apixaban * Have advised compliance with meds and oupt f/u * Discussed pros and cons of his card meds Clinical Quality Measures AMI/AHF: ASA po Prior to arrival: Yes STEVE PERALTA DRILL BIT SHARPENER Jul 17, 2017 09:39 BRITT BHATIA MD [facility] Jul 17, 2017 12:54
[2017-07-17] MEDS ORDERED: amLODIPine 10 MG (NORVASC) TAB PO NR (09:45)
[2017-07-17] MEDS: RT-ALBUTEROL SULF 2.5 MG/3 ML PRE-MIX VIAL IH SCH ×2 (10:36→10:37)
[2017-07-17 12:00] VITALS: BP 188/92
[2017-07-17] MEDS ORDERED: APIX2.5T PO (14:00)
[2017-07-17] MEDS ORDERED: METO-333 PO (14:00)
[2017-07-17] MEDS ORDERED: AMLO10TA2 PO (14:00)
[2017-07-17] MEDS ORDERED: ASPI-999 PO (14:01)
--- NOTE | 2017-07-17 14:05 | Discharge Instructions ---
Discharge [email or web address] Discharge Medications New, Converted or Re-Newed RX: Transmitted to Pharmacy New Medications: Amlodipine Besylate (Amlodipine Besylate) 10 Mg Tablet 10 MG PO 0945, #30 TAB 0 Refills Apixaban (Eliquis) 2.5 Mg Tablet 2.5 MG PO BID, #60 TAB 0 Refills Aspirin (Aspirin) 81 Mg Tab.chew 81 MG PO DAILY@0900, #30 TAB 0 Refills Metoprolol Tartrate (Metoprolol Tartrate) 25 Mg Tablet 50 MG PO BID, #60 TAB 0 Refills Continued Medications: Albuterol Sulfate (Proair Hfa) 1 Puff Puff 2 PUFF IH Q6H PRN for SHORTNESS OF BREATH Diphenoxylate HCl/Atropine (Diphenoxylate-Atrop 2.5-0.025) 1 Each Tablet 1 TAB PO Q4H PRN for DIARRHEA Doxazosin Mesylate (Doxazosin Mesylate) 2 Mg Tablet 2 MG PO DAILY Furosemide (Furosemide) 80 Mg Tablet 80 MG PO DAILY Insulin Aspart (Novolog Flexpen) 300 Units/3 Ml Solution SQ SLIDING/SCALE HOLDS IF BLOOD SUGAR IS 110-115 Nitroglycerin (Nitrostat) 0.4 Mg Tab.subl 0.4 MG PO UD PRN for CHEST PAIN PLACE 1 TABLET UNDER TONGUE EVERY 5 MINUTES FOR 3 DOSES Oxycodone HCl (Oxycodone HCl) 5 Mg Tablet 1 TAB PO Q6H PRN for PAIN-MODERATE TO SEVERE Pravastatin Sodium (Pravastatin Sodium) 40 Mg Tablet 40 MG PO DAILY Discontinued Medications: Aspirin (Aspirin EC) 325 Mg Tablet.dr 325 MG PO DAILY Clopidogrel Bisulfate (Clopidogrel) 75 Mg Tablet 75 MG PO DAILY Metoprolol Tartrate (Metoprolol Tartrate) 25 Mg Tablet 25 MG PO BID Patient Instructions Goal/Follow Up Appt: Follow up with Davis Avendano APRN on 07/22 at 2 pm. Return to [facility] For: Fever, decreased urine output Activity & Diet Activity as Tolerated: Yes Copy Copies To 1: ANASTACIO Richardson BETHANY N MD Jul 17, 2017 2:05 pm
--- NOTE | 2017-07-17 14:07 | Short Stay Summary ---
History of Present Illness History of Present Illness Reason for visit/HPI 57 yo male presented to ER with chest pain. Resolved this morning. No elevation in troponin. Seen by Cardiology and reportedly had stress test done recently at OSH, but records not available. He has chronic renal disease which appears to be worsening and has an appointment next week with Nephrology. Date of Admission Jul 16, 2017 at 11:07 am Date of Discharge Jul 17, 2017 Time Seen by Provider: 11:30 Attending Physician Xena Turner MD Admitting Physician [facility] Consult Dr. Mcdaniels, Cardiology Allergies and Home Medications Allergies Coded Allergies: codeine (Unverified Allergy, Severe, EDEMA, RESPIRATORY, 10/28/14) PATIENT TAKES HYDROCODONE AT HOME propoxyphene (Verified Allergy, Severe, THROAT SWELLED SHUT, 10/28/14) bee pollen (Unverified Allergy, Mild, 07/03/13) tramadol (Verified Allergy, Unknown, SEVERE MIGRAINE, 03/25/14) ibuprofen (Verified Adverse Reaction, Unknown, NAUSEA, 10/28/14) Home Medications Albuterol Sulfate 1 Puff Puff, 2 PUFF IH Q6H PRN for SHORTNESS OF BREATH, ( Reported) Amlodipine Besylate 10 Mg Tablet, 10 MG PO 0945, #30 Ref 0 Prescribed by: XENA TURNER on 07/17/17 1400 Apixaban 2.5 Mg Tablet, 2.5 MG PO BID, #60 Ref 0 Prescribed by: XENA TURNER on 07/17/17 1400 Aspirin 81 Mg Tab.chew, 81 MG PO DAILY@0900, #30 Ref 0 Prescribed by: XENA TURNER on 07/17/17 1401 Diphenoxylate HCl/Atropine 1 Each Tablet, 1 TAB PO Q4H PRN for DIARRHEA, ( Reported) Doxazosin Mesylate 2 Mg Tablet, 2 MG PO DAILY, (Reported) Furosemide 80 Mg Tablet, 80 MG PO DAILY, (Reported) Insulin Aspart 300 Units/3 Ml Solution, SQ SLIDING/SCALE, (Reported) HOLDS IF BLOOD SUGAR IS 110-115 Metoprolol Tartrate 25 Mg Tablet, 50 MG PO BID, #60 Ref 0 Prescribed by: XENA TURNER on 07/17/17 1400 Nitroglycerin 0.4 Mg Tab.subl, 0.4 MG PO UD PRN for CHEST PAIN, (Reported) PLACE 1 TABLET UNDER TONGUE EVERY 5 MINUTES FOR 3 DOSES Oxycodone HCl 5 Mg Tablet, 1 TAB PO Q6H PRN for PAIN-MODERATE TO SEVERE, ( Reported) Pravastatin Sodium 40 Mg Tablet, 40 MG PO DAILY, (Reported) Past Oadmzsk-Iurhpj-Pqgrva Hx Patient Social History Alcohol Use: Past History Recreational Drug Use: Yes Drug of Choice: weed Smoking Status: Current Everyday Smoker Type Used: Cigars Physical Abuse Screen: No Sexual Abuse: No Recent Foreign Travel: No Contact w/other who traveled: No Recent Hopitalizations: Yes (2 weeks ago at breeding) Recent Infectious Disease Expo: No Immunizations Up To Date Tetanus Booster (TDap): Less than 5yrs Pediatric: No Date of Pneumonia Vaccine: Apr 24, 2013 Date of Influenza Vaccine: May 11, 2017 Seasonal Allergies Seasonal Allergies: No Surgeries Yes Abdominal, Cardiac, CABG, Gallbladder, Orthopedic Respiratory Yes COPD Cardiovascular Yes Coronary Artery Disease, Hypertension Neurological Yes Reproductive System Sexually Transmitted Disease: No Genitourinary Yes Kidney Stones, Renal Failure Gastrointestinal Abdominal Hernia, Hemorrhoids Musculoskeletal Yes Amputee, Chronic Back Pain Endocrine History of Endocrine Disorders: Yes Endocrine Disorders: Diabetes, Insulin dep Are Your Blood Sugars Over 250: No HEENT Loss of Vision: Denies Hearing Impairment: Denies Cancer No Psychosocial History of Psychiatric Problem: Yes Behavioral Health Disorders: Anxiety, Depression Blood Transfusions History of Blood Disorders: No Family Medical History Significant Family History: Heart Disease Family Hx: FH: cancer Constitutional: No fever Cardiovascular: chest pain Gastrointestinal: No abdominal pain Genitourinary: no symptoms reported Musculoskeletal: back pain Skin: no symptoms reported Psychiatric/Neurological: No Symptoms Reported Physical Exam Vital Signs Vital Sign - Last 12Hours Capillary Refill : Less Than 3 Seconds General Appearance: No Apparent Distress Respiratory: Lungs Clear, Normal Breath Sounds Cardiovascular: Regular Rate, Rhythm, No Murmur Gastrointestinal: Normal Bowel Sounds, Non Tender Extremity: Other (bilateral lower leg amputations) Neurologic/Psychiatric: Alert Skin: Warm/Dry Clinical Quality Measures AMI/AHF: ASA po Prior to arrival: Yes DVT/VTE Risk/Contraindication: Risk Factor Score Per Nursin RFS Level Per Nursing on Admit: 4+=Very High Short Stay Diagnosis Discharge Diagnosis-Short Stay Admission Diagnosis: Chest pain CKD Atrial fibrillation Uncontrolled hypertension Final Discharge Diagnosis: Chest pain- no acute rise in troponins, follow up with Cardiology CKD- worsened from baseline but with normal electrolytes, will repeat BMP outpatient tomorrow to monitor for stability while waiting for Nephrology appointment next week Atrial fibrillation- started on Eliquis per Cardiology, stop plavix and continue asa at lower dose (81 mg) Uncontrolled hypertension- increased metoprolol to 50 mg BID and added amlodipine 10 mg daily Conclusion Labs Laboratory Tests 07/16/17 15:35: Total Creatine Kinase 87, Myoglobin 149.5H, Troponin I < 0.30 07/16/17 20:36: Glucometer 213H 07/17/17 06:00: White Blood Count 7.1, Red Blood Count 4.05L, Hemoglobin 12.3L, Hematocrit 37L, Mean Corpuscular Volume 92, Mean Corpuscular Hemoglobin 30, Mean Corpuscular Hemoglobin Concent 33, Red Cell Distribution Width 14.6H, Platelet Count 194, Mean Platelet Volume 11.4H, Neutrophils (%) (Auto) 62, Lymphocytes (%) (Auto) 19 , Monocytes (%) (Auto) 12, Eosinophils (%) (Auto) 6, Basophils (%) (Auto) 1, Neutrophils # (Auto) 4.4, Lymphocytes # (Auto) 1.4, Monocytes # (Auto) 0.9, Eosinophils # (Auto) 0.4H, Basophils # (Auto) 0.1, Sodium Level 136, Potassium Level 4.5, Chloride Level 105, Carbon Dioxide Level 24, Anion Gap 7, Blood Urea Nitrogen 33H, Creatinine 3.23H, Estimat Glomerular Filtration Rate 20, BUN/ Creatinine Ratio 10, Glucose Level 198H, Calcium Level 8.0L, Total Bilirubin 0.4 , Aspartate Amino Transf (AST/SGOT) 16, Alanine Aminotransferase (ALT/SGPT) 14, Alkaline Phosphatase 96, Total Protein 5.8L, Albumin 2.8L, Triglycerides Level 113, Cholesterol Level 126, LDL Cholesterol Direct 87, VLDL Cholesterol 23, HDL Cholesterol 26L 07/17/17 06:56: Glucometer 170H 07/17/17 11:13: Glucometer 229H Conclusion/Plan See final discharge diagnosis Copy Copies To 1: ANASTACIO Richardson BETHANY N MD Jul 17, 2017 2:07 pm
[2017-07-18] MEDS ORDERED: amLODIPine 5 MG (NORVASC) TAB PO SCH (09:00)
== END 2017-07-17 13:06 | disposition home or self-care (01) ==
LOC: EDUNIT# 08:52 → ER 08:53 → 4TH 11:07 → UNDOADMOB 11:07 → 4TH 11:45 → UNDODISOB 07-17 13:52
PROVIDERS: ADMIT Family Medicine; ATTEND Family Medicine
DX: R07.9 Chest pain, unspecified (principal); I12.9 Hypertensive chronic kidney disease with stage 1 through stage 4 chronic kidney disease, or unspecified chronic kidney disease; N18.4 Chronic kidney disease, stage 4 (severe); E11.22 Type 2 diabetes mellitus with diabetic chronic kidney disease; I25.10 Atherosclerotic heart disease of native coronary artery without angina pectoris; J44.9 Chronic obstructive pulmonary disease, unspecified; I48.0 Paroxysmal atrial fibrillation; G89.29 Other chronic pain; F17.210 Nicotine dependence, cigarettes, uncomplicated; F12.90 Cannabis use, unspecified, uncomplicated; Z79.82 Long term (current) use of aspirin; Z79.899 Other long term (current) drug therapy; Z79.01 Long term (current) use of anticoagulants; Z95.1 Presence of aortocoronary bypass graft; Z89.511 Acquired absence of right leg below knee; Z89.612 Acquired absence of left leg above knee
CPT/HCPCS: 36415; 71010; 80053; 80061; 81000; 82150; 82550; 82962; 83690; 83735; 83874; 84484; 85025; 85610; 85730; 93005; 93041; 94640